=== PATIENT | male | born 1995 | race Caucasian/White ===

== ENCOUNTER 2025-01-20 10:28 | Day surgery (SDC) | payer MEDICAID, SELFPAY ==
[2025-01-20] VITALS (9 sets, daily range): BP systolic 116–143; BP diastolic 70–91; PULSE 58–73; RESP 14–16; TEMP 36.5–36.9; O2SAT 98–100; BMI 23.6
[2025-01-20] MEDS: Lactated Ringers 1,000 ML 15 ML IV (11:28)
--- NOTE | 2025-01-20 11:55 | HP.PCM_ITS ---
HPI - General General Date of Admission: 01/20/25 Date of Service: 01/20/25 Chief Complaint: Right inguinal hernia/umbilical hernia HPI Narrative ALBERTO QUINN, is a 29 M who presents for elective robotic right inguinal hernia pair with mesh along with an umbilical hernia repair. Patient was seen in the office earlier this year. I offered him surgical repair. We discussed the details of the planned procedure and he wishes to proceed. This will begin momentarily [facility] Medical History (Updated 01/14/25 @ 15:21 by Sandra Aguilar) Depression Anxiety Alcohol use Heartburn Smoker Right inguinal hernia Home Medications Medication Instructions Recorded Last Taken Type NK 06/10/24 Unknown History Allergy/AdvReac Type Severity Reaction Status Date / Time No Known Allergies Allergy Verified 01/20/25 11:24 Surgical History (Updated 01/14/25 @ 15:21 by Sandra Aguilar) No history of previous surgery Social History (Updated 01/07/25 @ 14:59 by Zenaida Conley) current occupational status: employed Smoking Status: Current every day smoker quit status: not considering quitting alcohol intake: never substance use type: does not use Vital Signs Vital Signs Vital Signs: 01/20/25 11:25 01/20/25 11:25 Temperature 97.7 F L Temperature Source Temporal Pulse Rate 58 L Respiratory Rate 16 Respiratory Pattern Normal Blood Pressure 143/91 H Blood Pressure Mean 108 Blood Pressure Source Monitor Blood Pressure Position Semi-Fowlers Blood Pressure Location Right Arm Pulse Ox 100 Oxygen Delivery Method Room Air Weight Weight: 174 lb 2.643 oz Body Mass Index (BMI) 23.6 Physical Exam Const alert, oriented x3 and no apparent distress Assessment & Plan Assessment/Plan (1) Umbilical hernia: QUALIFIERS: Obstruction and gangrene presence: without obstruction or gangrene Qualified Code(s): K42.9 - Umbilical hernia without obstruction or gangrene (2) Right inguinal hernia: PLAN: Plan Robotic right inguinal hernia repair with mesh along with umbilical hernia repair plan for today
--- NOTE | 2025-01-20 12:02 | PRE.ANES_ITS ---
ASA Classification* ASA Classification ASA Classification: 2 Assessment & Plan Anesthesia* Anesthesia Assessment Anesthesia Assessment: Discussed sedation and/or anesthesia options, risks, benefits, and alternatives with patient/parents/legal guardian/POA. Questions invited. The patient/parents/legal guardian/POA seems to understand and agrees to proceed with anesthesia plan. Reviewed the physical assessment, medical history, allergy history and patient home medications list prior to surgery/procedure/anesthetic and documented any changes. Performed airway and anesthesia risk assessments. Anesthesia Type Anesthesia Type: General History Source History Obtained from:: Patient and Chart Anesthesia Focused Assessment* Temperature: 97.7 F Pulse Rate: 58 Blood Pressure: 143/91 Respiratory Rate: 16 Pulse Ox: 100 Oxygen Delivery Method: Room Air Airway Assessment Mouth opens: >3 cm Mallampati Score: II Teeth Condition: Chipped/Broken (Patient has several chipped teeth.) and Missing (Patient is missing a left upper molar. 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 When Was Last Pacemaker Check QUESTION #4 FULL TEXT: You/Your Family Experience fever (hyperthermia) with Anesthesia Last Oral Intake Last Oral intake: Last Oral Intake NPO since 23:00 01/20/25 11:25 Meds taken in AM with sips of water? Meds patient instructed to take am of surgery PONV PONV - confectionery maker: PONV - confectionery maker Female No 01/14/25 15:17 HX of Motion Sickness No 01/14/25 15:17 HX of N/V After Surgery No 01/14/25 15:17 Non-Smoker No 01/14/25 15:17 Duration of Surgery greater Yes 01/14/25 15:17 than 60 minutes Number of Risk Factors 1 01/14/25 15:17 PONV Score Low Risk 01/14/25 15:17 Height & Weight Height & Weight: Anesthesia: Height & Weight Height 6 ft 01/20/25 11:25 Weight: 79 kg 01/20/25 11:25 Body Mass Index (BMI) 23.6 01/20/25 11:25 Respiratory Assessment Respiratory Assessment - confectionery maker: Respiratory Tract Infection Hx - confectionery maker Hx Respiratory Tract Infection No 01/14/25 15:17 STOP Sleep Apnea STOP Sleep Apnea - confectionery maker: STOP Sleep Apnea - confectionery maker Hx Hypertension No 01/14/25 15:17 Hx Sleep Apnea No 01/14/25 15:17 CPAP BIPAP Do you snore loudly (louder No 01/14/25 15:17 than talking or can be heard Do you often feel tired/ No 01/14/25 15:17 fatigued/ sleepy during daytime? Has anyone observed you stop No 01/14/25 15:17 breathing during sleep? STOP Results Negative 01/14/25 15:17 QUESTION #5 FULL TEXT : Do you snore loudly (louder than talking or can be heard through closed doors)? 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 Specify any problems Hx of Preganancy in last 3 N/A 01/14/25 15:17 Months Nurse Filling Out Transfusion DSCHRIBER 01/14/25 15:17 & Questions: Date: 01/14/25 01/14/25 15:17 Time: 15:18 01/14/25 15:17 Patient unable to answer at this time (ie. confused, unrespo /Reproduction History /Reproductive History - confectionery maker: /Reproductive Hx- confectionery maker Hx Now No 01/14/25 15:17 Gestational Age (in weeks): EDC: Hx Hx Para Hx Section SAB No 01/14/25 15:17 Does the father of the baby or his family experience fever w Father of the baby Malignant Hypertension history comment Active Medications Active Medications: Current Medications Generic Name Dose Route Start Last Admin Trade Name Freq PRN Reason Stop Dose Admin Lactated Ringer's 1,000 mls @ 15 mls/hr 01/20/25 11:15 01/20/25 11:28 IV 15 mls/hr .Q48H RONI Administration PFSH Medical History Depression Anxiety Alcohol use Heartburn Smoker Right inguinal hernia Home Medications Medication Instructions Recorded Last Taken Type NK 06/10/24 Unknown History Allergy/AdvReac Type Severity Reaction Status Date / Time No Known Allergies Allergy Verified 01/20/25 11:24 Surgical History No history of previous surgery no surgical history Social History current occupational status: employed Smoking Status: Current every day smoker tobacco type: cigarettes quit status: not considering quitting alcohol intake: never substance use type: does not use Review of Systems (Anesthesia) ROS Narrative System reviewed and no additional complaints, except as documented.
--- OUTSIDE RECORDS SUMMARY | 2025-01-20 12:10 | XMS RPT_ITS | CCD ---
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 MsgRcvd: 09/24/2024 22:52 EDT Lab Test Result Reference Status Received Comments 09/24/2024 22:52 CBC-COMPLETE CBC + DIFF Final EDT BLOOD COUNT 09/24/2024 22:52 WBC 8.2 x 10/UL 4.5 - 10.8 Final EDT 09/24/2024 22:52 RBC 5.02 x 10/UL 4.50 - 6.00 Final EDT 09/24/2024 22:52 HEMOGLOBIN 15.0 g/dl 13.0 - 17.5 Final EDT 09/24/2024 22:52 HEMATOCRIT 43.0 % 40.0 - 52.0 Final EDT 09/24/2024 22:52 MCV 86 fl 81 - 98 Final EDT 09/24/2024 22:52 MCH 30 pg 27 - 33 Final EDT 09/24/2024 22:52 MCHC 35 X10 3 32 - 36 Final EDT 09/24/2024 22:52 RDW/CV 13.7 % 12.0 - 15.6 Final EDT 09/24/2024 22:52 PLATELET 219 x10/UL 150 - 450 Final EDT 09/24/2024 22:52 AUTOMATED MPV 9.8 fl 6.4 - 10.5 Final EDT DIFFERENTIAL 3 of 9 Narrative Lab Test Result Reference Status Received Comments 45.8 % 09/24/2024 22:52 NEUT % 46.0 - 76.0 Final Below low normal EDT 09/24/2024 22:52 LYMPH % 42.5 % 20.0 - 45.0 Final EDT 09/24/2024 22:52 MONOS % 7.1 % 0.0 - 10.0 Final EDT 09/24/2024 22:52 EO % 4.1 % 0.0 - 7.0 Final EDT 09/24/2024 22:52 BASO % 0.5 % 0.0 - 2.0 Final EDT 3.47 x10/UL 09/24/2024 22:52 Lymph # 0.80 - 2.80 Final Above high normal EDT 09/24/2024 22:52 Neut # 3.74 x10/UL 1.50 - 7.10 Final EDT 09/24/2024 22:52 [place] # 0.58 x10/UL 0.20 - 1.00 Final EDT 09/24/2024 22:52 EO # 0.34 x10/UL 0.00 - 0.50 Final EDT 09/24/2024 22:52 Baso # 0.04 x10/UL 0.00 - 0.10 Final EDT 09/24/2024 22:52 MANUAL DIFF N/A New Order EDT 09/24/2024 22:52 MORPHOLOGY N/A New Order EDT CMP with eGFR Final SONYA: 09/24/2024 22:25:00 EDT MsgRcvd: 09/24/2024 23:11 EDT 4 of 9 Narrative Lab Test Result Reference Status Received Comments COMPREHENSIVE 09/24/2024 CMP with eGFR Final METABOLIC 23:11 EDT PANEL 09/24/2024 SODIUM 141 mmol/l 136 - 145 Final 23:11 EDT 09/24/2024 POTASSIUM 4.0 mmol/L 3.5 - 5.1 Final 23:11 EDT 09/24/2024 CHLORIDE 106 mmol/L 98 - 107 Final 23:11 EDT 09/24/2024 CO2 28.3 mmol/L 21.0 - 32.0 Final 23:11 EDT 108 mg/dl 09/24/2024 GLUCOSE Above high 74 - 106 Final 23:11 EDT normal 09/24/2024 BUN 16 mg/dl 7 - 18 Final 23:11 EDT 09/24/2024 CREATININE 0.95 mg/dl 0.70 - 1.30 Final 23:11 EDT 13 U/L 09/24/2024 AST/SGOT 15 - 37 Final Below low normal 23:11 EDT 09/24/2024 AL (more content not included)... Normal [facility] ED SUPER BILLon 09-25-2024 ED SUPER BILL [address] [address] [id number] 09/24/2024 Patient: ALBERTO QUINN Sex: Male : 1995 Age: 29y Item Facility Professional Category Description Code Code Quantity Fee Total Drugs Normal Saline 379472 1 $0.00 $0.00 1000cc (471723) Nurse/E/M EMERGENCY 421296 1 $0.00 $0.00 DEPARTMENT VISIT HIGH/URGENT SEVERITY (30627-80) Nurse/IV/IM/Infusio ns Hydration 855006 2 $0.00 $0.00 additional hour (68310) Nurse/IV/IM/Infusio ns IVP additional 050005 1 $0.00 $0.00 push (22591) Nurse/IV/IM/Infusio ns IVP initial 816725 1 $0.00 $0.00 (63658) Grand Total $0.00 Providers Tangela Leavitt D.O. 1 of 2 [facility] Chief Complaint ABDOMINAL PAIN. Principal Diagnosis Periumbilical, right lower quadrant and suprapubic abdominal pain of undetermined cause. Reducible and recurrent right inguinal hernia. No obstruction or gangrene. ICD-10 Codes R10.33: Periumbilical pain R10.31: Right lower quadrant pain R10.30: Lower abdominal pain, unspecified K40.91: Unilateral inguinal hernia, without obstruction or gangrene, recurrent 2 of 2 Normal [facility] ED VISIT SUMMARYon ED VISIT SUMMARY Visit Overview Visit Overview [address] [address] [id number] 09/24/2024 Patient: ALBERTO QUINN Sex: Male : 1995 Age: 29y 09/25/2024 01:18 AM EDT ED Arrival:22:12 09/24/2024 EDT Status: Recent Travel:no Language:eng Adv Directive:No Isolation Status: Ethnicity:N Fall Risk:no risk Infectious Disease Exposure:no Measurements:6' / 182.9 Self-Harm Status:risk Sepsis Screen:negative cm 175.0 lb / 79.4 kg Chief Complaint:(Luke Jocelyne) and (Painful hernias to inguinal and umbilical) ALLERGIES No Known Drug Allergies HOME MEDICATIONS None PAST MEDICAL HISTORY / PROBLEMS Immunizations: up-to-date See nurses notes 1 of 3 Visit Overview PAST SURGICAL HISTORY No Surgeries SOCIAL HISTORY Smoking status: Yes Alcohol use: No Drug use: Yes ED COURSE MEDICATIONS GIVEN IN EMERGENCY DEPARTMENT 22:32 09/24/24 IV NS 0.9 % 1000 mL 500 mL/hr 22:48 09/24/24 Zofran IVP 4 mg 22:50 09/24/24 HYDROmorphone (Dilaudid) IVP 0.5 mg IV SITE INFORMATION INTAKE OUTPUT REASSESMENT (most recent) 23:31 09/24/24. The patient reports no complaints and the patient is calm. ( Pt reports his hernia has reduced but will "fall out" again when he stands up.). VITAL SIGNS First Vitals Last Vitals Temp 22:18 09/24/24 98.6 F Temp 00:19 09/25/24 BP 22:18 09/24/24 158/99 BP 00:19 09/25/24 HR 22:18 09/24/24 115 HR 00:19 09/25/24 60 RR 22:18 09/24/24 16 RR 00:19 09/25/24 O2 Sat 22:18 09/24/24 98% RA O2 Sat 00:19 09/25/24 97% Pain 22:18 09/24/24 7 Pain 00:19 09/25/24 ETCO2 22:18 09/24/24 ETCO2 00:19 09/25/24 GCS 22:18 09/24/24 GCS 00:19 09/25/24 RTS 22:18 09/24/24 RTS 00:19 09/25/24 2 of 3 Visit Overview PROCEDURES NURSING INTERVENTIONS LABS / STUDIES LABS / STUDIES ORDERED CBC w Diff CMP CT ABD/PEL w Cont Lipase Urinalysis CLINICAL IMPRESSION PERIUMBILICAL, RIGHT LOWER QUADRANT AND SUPRAPUBIC ABDOMINAL PAIN OF UNDETERMINED CAUSE REDUCIBLE AND RECURRENT RIGHT INGUINAL HERNIA. NO OBSTRUCTION OR GANGRENE 3 of 3 Normal [facility] ED VITALS FLOW SHEETon 09-25 ED VITALS FLOW SHEET Vitals Vital Sign Flow Sheet [facility] [address] [place] [address] [id number] 09/24/2024 [id number] Sex: Male : 1995 Age: 29y Measurements Wt: 79.4 kg, Ht/Steven: 72.0 in, BMI: 23.73 Measured Time BP MAP HR RR O2Sat ETCO2 Temp Pain GCS RTS 00:19 09/25/2024 60 97% 00:19 09/25/2024 122/78 86 59 00:14 09/25/2024 65 98% 00:09 09/25/2024 63 98% 00:04 09/25/2024 65 97% 00:04 09/25/2024 122/76 88 60 23:59 09/24/2024 64 97% 23:54 09/24/2024 65 95% 23:49 09/24/2024 95 95% 23:49 09/24/2024 121/72 83 62 23:44 09/24/2024 68 96% 23:39 09/24/2024 69 96% 23:34 09/24/2024 73 97% 23:34 09/24/2024 119/74 88 70 23:29 09/24/2024 82 97% 1 of 2 Vitals Measured Time BP MAP HR RR O2Sat ETCO2 Temp Pain GCS RTS 23:24 09/24/2024 82 98% 23:19 09/24/2024 84 97% 23:19 09/24/2024 121/75 89 82 23:14 09/24/2024 79 98% 23:06 09/24/2024 78 97% 23:04 09/24/2024 120/64 82 75 23:01 09/24/2024 84 99% 22:56 09/24/2024 92 98% 22:51 09/24/2024 100 97% 22:49 09/24/2024 129/85 105 95 22:46 09/24/2024 101 98% 22:41 09/24/2024 90 98% 22:36 09/24/2024 110 98% 22:34 09/24/2024 136/91 97 101 22:31 09/24/2024 105 98% 22:26 09/24/2024 90 99% 22:21 09/24/2024 102 98% 22:19 09/24/2024 158/99 106 113 22:18 09/24/2024 158/99 119 115 16 98% RA 98.6 F 7 2 of 2 Normal [facility] CBC + DIFFon 09-24-2024 Baso # 0.04 x10EE3/UL Normal 0.00 - 0.10 [facility] Comment on above: Performed By: #### 2 [id number] ####[facility],[address] [place] [address] Basophils/100 WBC (Bld) 0.5 % Normal 0.0 - 2.0 [facility] Comment on above: Performed By: #### 2 06037 ####[facility],[address] [place] [address] CBC + DIFF Normal [facility] Comment on above: Result Comment: CBC- COMPLETE BLOOD COUNT Performed By: #### 2 98553 ####[facility],[address] [place] [address]796 EO # 0.34 x10EE3/UL Normal 0.00 - 0.50 [facility] Comment on above: Performed By: #### 2 93049 ####[facility],[address] [place] [address] 39100 Eosinophils/100 WBC (Bld) 4.1 % Normal 0.0 - 7.0 [facility] Comment on above: Performed By: #### 2 98523 ####[facility],[address] [place] [address] 95135 Erythrocyte distribution width (RBC) [Ratio] 13.7 % Normal 12.0 - 15.6 [facility] Comment on above: Performed By: #### 2 32090 ####[facility],[address] [place] [address] 95011 Hematocrit (Bld) [Volume fraction] 43.0 % Normal 40.0 - 52.0 [facility] Comment on above: Performed By: #### 2 83358 ####[facility],[address] [place] [address] 89289 Hemoglobin (Bld) [Mass/Vol] 15.0 g/dL Normal 13.0 - 17.5 [facility] Comment on above: Performed By: #### 2 19009 ####[facility],[address] [place] [address] Lymph # 3.47 x10EE3/UL High 0.80 - 2.80 [facility] Comment on above: Performed By: #### 2 29752 ####[facility],[address] [place] [address] Lymphocytes/100 WBC (Bld) 42.5 % Normal 20.0 - 45.0 [facility] Comment on above: Performed By: #### 2 11741 ####[facility],[address] [place], [place] [address] MANUAL DIFF N/A Normal [facility] Comment on above: Performed By: #### 2 42121 ####[facility],[address] [place], [place] [address] MCH (RBC) [Entitic mass] 30 pg Normal 27 - 33 [facility] Comment on above: Performed By: #### 2 39240 ####[facility],[address] [place], [place] [address] MCHC 35 X10 3 Normal 32 - 36 [facility] Comment on above: Performed By: #### 2 25167 ####[facility],[address] [place] [address] MCV (RBC) [Entitic vol] 86 fL Normal 81 - 98 [facility] Comment on above: Performed By: #### 2 13321 ####[facility],[address] [place] [address]63 [place] # 0.58 x10EE3/UL Normal 0.20 - 1.00 [facility] Comment on above: Performed By: #### 2 89697 ####[facility],[address] [place] [address]1966 MONOS % 7.1 % Normal 0.0 - 10.0 [facility] Comment on above: Performed By: #### 2 60584 ####[facility],[address] [place] [address] 45559 Morphology [place] (Bld) [Interp] N/A Normal [facility] Comment on above: Performed By: #### 2 42967 ####[facility],[address] [place] [address] Neut # 3.74 x10EE3/UL Normal 1.50 - 7.10 [facility] Comment on above: Performed By: #### 2 33523 ####[facility],[address] [place] [address] 28166 Neutrophils/100 WBC (Bld) 45.8 % Low 46.0 - 76.0 [facility] Comment on above: Performed By: #### 2 58811 ####[facility],[address] [place] [address] 14775 PLATELET 219 x10EE3/UL Normal 150 - 450 [facility] Comment on above: Performed By: #### 2 82340 ####[facility],[address] [place] [address] 69510 Platelet mean volume (Bld) [Entitic vol] 9.8 fL Normal 6.4 - 10.5 [facility] Comment on above: Result Comment: AUTO MATED DIFFERENTIAL Performed By: #### 2 08608 ####[facility],[address] [place] [address] 60803 RBC 5.02 x 10EE6/UL Normal 4.50 - 6.00 [facility] Comment on above: Performed By: #### 2 40643 ####[facility],[address] [place] [address]6573 WBC 8.2 x 10EE3/UL Normal 4.5 - 10.8 [facility] Comment on above: Performed By: #### 2 98199 ####[facility],[address] [place] [address] 30665 CMP with eGFRon 09-24-2024 AGE 29 years Normal [facility] Comment on above: Performed By: #### 2 37858 ####[facility],[address] [place] [address] 69130 Albumin [Mass/Vol] 3.5 g/dL Normal 3.4 - 5.0 [facility] Comment on above: Performed By: #### 2 82787 ####[facility],[address] [place] [address] Albumin/Globulin [Mass ratio] 0.9 {ratio} Normal 0.9 - 1.6 [facility] Comment on above: Performed By: #### 2 62271 ####[facility],[address] [place], [place] [address] ALK PHOS 74 U/L Normal 46 - 116 [facility] Comment on above: Performed By: #### 2 50909 ####[facility],[address] [place] [address] 31642 ALT [Catalytic activity/Vol] 24 U/L Normal 16 - 63 [facility] Comment on above: Performed By: #### 2 38708 ####[facility],[address] [place] [address] 87142 Anion gap [Moles/Vol] 11 mmol/L Normal 10 - 20 [facility] Comment on above: Performed By: #### 2 56316 ####[address] [address] AST [Catalytic activity/Vol] 13 U/L Low 15 - 37 [facility] Comment on above: Performed By: #### 2 76564 ####[facility],[address] [place] [address] 30053 B/C RATIO 17 ratio Normal 0 - 30 [facility] Comment on above: Performed By: #### 2 68632 ####[facility],[address] [place] [address] 77489 Bilirubin [Mass/Vol] 0.3 mg/dL Normal 0.2 - 1.0 [facility] Comment on above: Performed By: #### 2 89596 ####[facility],[address] [place] [address] 19248 Calcium [Mass/Vol] 9.0 mg/dL Normal 8.5 - 10.1 [facility] Comment on above: Performed By: #### 2 44658 ####[facility],[address] [place] [address] 06567 Chloride [Moles/Vol] 106 mmol/L Normal 98 - 107 [facility] Comment on above: Performed By: #### 2 15115 ####[facility],[address] [place], [place] [address] CMP with eGFR Normal [facility] Comment on above: Result Comment: COMP REHENSIVE METABOLIC PANEL Performed By: #### 2 75449 ####[facility],[address] [place] [address] 76013 CO2 [Moles/Vol] 28.3 mmol/L Normal 21.0 - 32.0 [facility] Comment on above: Performed By: #### 2 35662 ####[facility],[address] [place] [address] 06956 Creatinine [Mass/Vol] 0.95 mg/dL Normal 0.70 - 1.30 [facility] Comment on above: Performed By: #### 2 46229 ####[facility],[address] [place] [address]4722 GFR/1.73 sq M.predicted among non-blacks MDRD (S/P/Bld) [Vol rate/Area] mL/min/{1.73_m2} Normal 60 - 999 [facility] Comment on above: Performed By: #### 2 72463 ####[facility],[address] [place] [address] 26055 Result Comment: ACCO RDING TO THE NATIONAL KIDNEY DISEASE EDUCATION PROGRAM(NKDE), A NORMAL eGFR IS A VALUE GREATER THAN OR EQUAL TO 60 ML/MIN/1.73 SQ METERS. CHRONIC KIDNEY DISEASE: <60mL/MIN/1.73 SQ METERS KIDNEY FAILURE: <15mL/MIN/1.73 SQ METERS THIS TEST SHOULD ONLY BE USED FOR PATIENTS 18 YEARS OF AGE AND OLDER. Globulin (S) [Mass/Vol] 4.0 g/dL High 1.5 - 3.8 [facility] Comment on above: Performed By: #### 2 16686 ####[facility],[address] [place] [address] 37984 Glucose [Mass/Vol] 108 mg/dL High 74 - 106 [facility] Comment on above: Performed By: #### 2 15002 ####[facility],[address] [place] [address] 57275 Potassium [Moles/Vol] 4.0 mmol/L Normal 3.5 - 5.1 [facility] Comment on above: Performed By: #### 2 31367 ####[facility],[address] [place] [address] 15375 Protein [Mass/Vol] 7.5 g/dL Normal 6.4 - 8.2 [facility] Comment on above: Performed By: #### 2 92919 ####[facility],[address] [place] [address] 45207 Sodium [Moles/Vol] 141 mmol/L Normal 136 - 145 [facility] Comment on above: Performed By: #### 2 96675 ####[facility],[address] [place] [address] 60648 Urea nitrogen [Mass/Vol] 16 mg/dL Normal 7 - 18 [facility] Comment on above: Performed By: #### 2 15096 ####[facility],[address] [place] [address] 09515 LIPASEon 09-24-2024 Lipase [Catalytic activity/Vol] 25.0 U/L Normal 15.0 - 78.0 [facility] Comment on above: Result Comment: *PLE ASE NOTE THAT RANGES FOR LIPASE HAVE CHANGED OF 03/03/23 DUE TO AN ASSAY UPDATE BY THE PRECISION HONING MACHINE OPERATOR.THE NEW ASSAY RANGE IS 6-250 U/L, WITH A REFERENCE RANGE OF 16-77 U/L. Performed By: #### 2 90639 ####[facility],[address] [place] [address] 93537 Surgery Visit Reporton 06-10 Surgery Visit Report [facility] [address] [place] [address] [address] [place] [address] OFFICE VISIT Date of Service: 06/10/24 MR#: [id number] Acct: [id number] Name: ALBERTO QUINN Rep #: [id number] : 1995 Provider: Dr. Holland hughes MD Age/Sex: 29/M Location: [facility] Status: Signed Intake Vital Signs 06/10/24 09:20 Height 6 ft Weight: 179 lb BMI 24.3 BP 137/80 H Blood Pressure Location Rt brachial Position Sitting Respiration 18 Pulse 80 Pulse Source Monitor Temp 97.9 F Temp Source Temporal Pulse Oximetry (%) 100 Oxygen Delivery Method room air Intake Visit Reasons: INGUINAL HERNIA- SP Chief Complaint: inguinal hernia Allergies No Known Allergies Allergy (Unverified 06/10/24 09:21) Medications ???Medication ???Instructions ???Recorded ???Confirmed ???Type NK 06/10/24 06/10/24 History PFSH Medical History Right inguinal hernia Social History current occupational status: employed Smoking Status: Current every day smoker alcohol intake: never substance use type: does not use HPI HPI HPI: The patient is a 29-year-old male who is being seen today for a palpable right inguinal hernia. 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 He noticed while at work, a pop and a bulge was noted in the right groin. He states that this was first noticed back in October 2023. He states that this pain and discomfort has persisted. He presents today for evaluation of this hernia on the right. He denies any issues or problems on the left. He does notice some occasional discomfort at the umbilicus as well. ROS General General: No weight change, appetite, fatigue, colon cancer, breast cancer or weakness HEENT HEENT: No difficulty swallowing, eye injury, eye surgery, swollen glands or hoarseness Endo Endocrine: No thyroid disease, diabetes mellitus, thyroid cancer, Hair loss, heat intolerance or cold intolerance Skin Skin: No rash or changing moles Musc Musculoskeletal: No back problems, arthritis, rheumatoid arthritis, gout or joint pain Cardio Cardiovascular: No murmur, pacemaker, heart disease, atrial fibrillation, high blood pressure, heart attack, heart stent, palpitations, shortness of breath with exertion or chest pain Psych Psychiatric: Yes depression and anxiety; No hearing voices Resp Respiratory: No shortness of breath, No sleep apnea, No cough, No COPD, No asthma, No emphysema and No wheezing Gastro Gastrointestinal: Yes abdominal pain, No nausea or vomiting, No diarrhea, Yes constipation, No blood in stool, Yes acid reflux, No hemorrhoids, No ulcers, No gallbladder problem and No black,tarry stools Dereje Hematologic: No blood thinners, No blood disorders, No bleeding, No anemia and No blood clots Neuro Neurologic: No numbness, No tingling and No weakness Exam Const General: cooperative, comfortable and no acute distress [facility] Head: normal to inspection, normocephalic and atraumatic Eyes General: appearance normal, both eyes and all related structures Neck Neck: normal visual inspection Resp Effort Inspection: normal respiratory effort GI Other: Abdomen soft, nontender nondistended. He does have a small fat-containing umbilical hernia Other: Fairly easily reducible moderate-sized right inguinal hernia. No evidence of left inguinal hernia Assessment and Plan Assessment and Plan (1) Right inguinal hernia: Status: Acute Plan: The patient is a 29-year-old male who is being seen today for right inguinal hernia. He does indeed have a right inguinal hernia. He also has a small umbilical hernia. I have offered him a robotic right inguinal hernia repair with mesh as well as an open repair of his small umbilical hernia as well. We discussed the details of the planned procedure as well as risks benefits and alternatives. He wishes to proceed. This will be scheduled in a timely manner. Coding Level of Care Code Off vis,new,level 4 Diagnoses Right inguinal hernia K40.90 06/10/24 0955 Date Holland Garcia Signature: Date (if applicable) CC: FAYE Palacios [facility] ED MED ADMINISTRATION DETAIL on 05-10-2024 ED MED ADMINISTRATION DETAIL Catalogue Illustrator Medication Administration Record [address] [address] [id number] 05/10/2024 Patient: ALBERTO QUINN Sex: Male : 1995 Age: 28y MEASUREMENTS: Wt: 79.4 kg, Ht/Steven: 72.0 in, BMI: 23.73 ALLERGIES: No known drug allergies Medication Ordered Medication Administration Date/Time Neomycin-Bacitraci 05:15 05/10 Neomycin-Bacitracin Zn-Polymyx Ophth Ointment 1 Given n Zn-Polymyx applic given. Given in the left eye. Allergies verified and confirmed 5 05:15 05/10/2024 Ophth Ointment 1 rights. Information reviewed with patient including reason for taking Mateusz Steward R.N. applic (NOW x1) this medication. Verbalizes understanding. - 05:17 Scottie Anand R.N. 1 of 1 [facility] ED NURSES CLINICAL NOTEon ED NURSES CLINICAL NOTE Nurse Narrative Nurse Clinical Narrative [address] [address] [id number] 05/10/2024 Patient: ALBERTO QUINN Sex: Male : 1995 Age: 28y Primary Insurance: [employer] [facility] Policy Number: [id number] Subscriber: Other Disposition: Discharge to Home Disposition Decision Time: 05:16 05/10/2024 Departure Time: 05:05/10/2024 TRIAGE Arrived by private vehicle. Historian: (patient). Accompanied by friend. Triage time: 04:05/10/2024. Acuity: LEVEL 3. Chief Complaint: REDNESS, PAIN, FOREIGN BODY and VISION PROBLEM TO LEFT EYE. (two days ago cutting rebar at work felt piece of metal hiy his left eye, now w/ c/o increased pain and burning sensation.). Alert. No acute distress. Onset. (two days ago). The patient has had eye discomfort, photophobia and blurred vision. Treatment ADVISER SALES: None. SEPSIS SCREEN: NEGATIVE. SIRS criteria negative. No possible sources of infection. -- 04:16 05/10/24 YOVANNY Steward R.N. 04:05/10/24. BP: 141/87 MAP: 105. HR: 85. RR: 16. O2 saturation: 97% Temperature: 98.7 F. Pain level now 4/10. -- 04:15 05/10/24 YOVANNY Steward R.N. 04:05/10/24. 1 of 4 Nurse Narrative VISUAL ACUITY: Visual acuity performed without corrective lenses: left eye 20/50; right eye 20/25. -- 04:18 05/10/24 YOVANNY Steward R.N. Measurements: 04:05/10/24 Wt: 79.4 kg, Ht/Steven: 72.0 in, BMI: 23.73 -- 04:16 05/10/24 YOVANNY Steward R.N. Medications: no known home medications -- 04:05/10/24 YOVANNY Steward R.N. 04:05/10/24. Preferred Pharmacy: ([facility]). -- 04:16 05/10/24 YOVANNY Steward R.N. Allergies: no known drug allergies -- 04:05/10/24 YOVANNY Steward R.N. Problems: no known problem -- 04:05/10/24 YOVANNY Steward R.N. ADDITIONAL SURGERIES: unable to obtain surgical history -- 04:12 05/10/24 YOVANNY Steward R.N. History 04:05/10/24. PAST MEDICAL HX: Immunizations: Tetanus status: unknown. Other immunizations: up-to-date. SOCIAL HX: Heavy tobacco smoker (cigarette)- less than 1 pack per day. No alcohol use or drug use. The patient has not traveled outside the [place] Infectious disease exposure: No infectious disease exposure. ABUSE ASSESSMENT: The patient answered "yes" to the question(s) "Do you feel safe in your home?" and "no" to the question(s) "Are you afraid to go home?". SELF HARM ASSESSMENT: Self harm assessment was performed. The patient answered "no" to the question(s) "Have you recently felt down, depressed, or hopeless?" and "Do you have thoughts of harming or 2 of 4 Nurse Narrative killing yourself?". FALL RISK ASSESSMENT: Fall risk assessment completed. No risk factors identified. -- 04:16 05/10/24 YOVANNY Steward R.N. Interventions 04:05/10/24. Identification band on patient. Advanced care plan. Patient does not have advanced directive. -- 04:16 05/10/24 YOVANNY Steward R.N. PHYSICAL ASSESSMENT 04:05/10/24. GENERAL / NEURO / PSYCH: Alert. Appears in no acute distress. ( here for foreign body to left eye x two days). HEENT: No signs of head trauma. -- 04:38 05/10/24 YOVANNY Steward R.N. NURSING PROGRESS NOTES 04:05/10/24. Two patient identifiers checked. Call light placed in reach. Side rails up x 1. Bed placed in lowest position. Brakes of bed on. Aircraft Sales Representative at bedside. -- 04:38 05/10/24 YOVANNY Steward R.N. 04:48 05/10/24. Eye Exam: Eye exam performed by ED physician. Assisted by one nurse. Left eye examined using slit lamp, fluorescein and lamp. A single foreign body was noted and removed from the cornea. Rust ring present. Corneal abrasion noted. The procedure was successful. Post-procedure: patient tolerated the procedure well and there were no complications. Antibiotic ointment applied to the left eye. Total time of assist / procedure: (5). -- 05:33 05/10/24 YOVANNY Steward R.N. 05:15 05/10/24. Neomycin-Bacitracin Zn-Polymyx Ophth Ointment 1 applic given. Given in the left eye. Allergies verified and confirmed 5 rights. Information reviewed with patient including reason for taking this medication. Verbalizes understanding. -- 05:17 05/10/24 YOVANNY Steward R.N. DISPOSITION / DISCHARGE 04:59 05/10/24. BP: 129/85 MAP: 100. HR: 83. RR: 16. O2 saturation: 97% Pain level now 0/10. -- 05:34 05/10/24 YOVANNY Steward R.N. 05:24 05/10/24. Condition at departure: improved. Discharge instructions provided and reviewed. Reviewed medication(s) dosing and course information. Medication(s) given for home use. Patient verbalized understanding. Written instructions provided in Icelandic. The patient was discharged home and accompanied by spouse. The patient left ambulatory and via private vehicle. Spouse driving. -- 05:35 05/10/24 YOVANNY العلي (more content not included)... [facility] ED ORDER SHEET (CPOE ONLY)on 05-10-2024 ED ORDER SHEET (CPOE ONLY) Order Sheet Order Sheet [address] [address] [id number] 05/10/2024 Patient: ALBERTO QUINN Sex: Male : 1995 Age: 28y MEASUREMENTS: Wt: 79.4 kg, Ht/Steven: 72.0 in, BMI: 23.73 ALLERGIES: No known drug allergies MEDICATION/IV/DRIP/ FLUID ORDERS Order Description Priority Entered Acknowledged Completed Neomycin-Bacitracin 05:09 05/10/2024 05:09 05:17 Zn-Polymyx Ophth Ointment1 Arianna Marcos M.D. 05/10/2024 05/10/2024 applic (NOW x1) Yenni Rutt, R.N. Mateusz Cleveland, R.N. LAB ORDERS Order Description Priority Entered Acknowledged Collected Completed DIAGNOSTIC STUDY ORDERS Order Description Priority Entered Acknowledged Completed STAFF ORDERS Order Description Priority Entered Acknowledged Collected Completed [Electronically signed by Arianna Marcos M.D. (05/10/2024 05:46 EST)] 1 of 1 [facility] ED PHYSICIAN CLINICAL REPORT on 05-10-2024 ED PHYSICIAN CLINICAL REPORT Narrative Physician Clinical Narrative [facility] [address] [place] [address] [phone] 05/10/2024 Patient: ALBERTO QUINN Sex: Male : 1995 Age: 28y Primary Insurance: [employer] [place] [employer]PAT[employer] Policy Number: [id number] Subscriber: Other Disposition: Discharge to Home Disposition Decision Time: 05:16 05/10/2024 Departure Time: 05:24 05/10/2024 Measurements Wt: 79.4 kg, Ht/Steven: 72.0 in, BMI: 23.73 Initial Vital Sign Measured Time BP MAP HR RR O2Sat ETCO2 Temp Pain GCS RTS 04:15 05/10/2024 141/87 105 85 16 97% 98.7 F 4 Time Seen: 04:16 05/10/2024. HISTORY OF PRESENT ILLNESS Chief Complaint: EYE PAIN. This involves the left eye. Additional history - ( 28-year-old male presents to the ED with complaint of foreign body to left eye. 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 he felt something small go into his eyes at that time. Started having worsening pain, protein within comes in the ED. denies any headaches, complaint of mild blurry vision to the left eye. Denies chest pain, shortness of breath or other concerns at this time.). REVIEW OF SYSTEMS negative review of systems unless otherwise mentioned in the HPI. 1 of 4 Narrative PAST HISTORY no known problem Surgeries: unable to obtain surgical history Medications: no known home medications Allergies: no known drug allergies ADDITIONAL NOTES The nursing notes have been reviewed. PHYSICAL EXAM Vital Signs: Have been reviewed. Appearance: Alert. Oriented X3. HEENT: Head appears normal to external inspection. Eyes: Visual acuity noted- see nurse's notes. Eyelids appear normal to inspection. Pupils equal, round and reactive to light. Accommodation normal. Periorbital areas appear normal to inspection. Lt Eye: Injected conjunctiva. Conjunctival foreign body present. No conjunctival edema, subconjunctival hemorrhage or injury to the conjunctiva or sclera. No exudate present. Neck: Neck supple. CVS: Normal heart rate. Respiratory: No respiratory distress. Abdomen: Nontender. Skin: No rash. Extremities: Extremities negative. Neuro: Oriented X 3. PROGRESS AND PROCEDURES 2 of 4 Narrative MEDICAL DECISION MAKING: (Exam patient is awake, alert and oriented x4. Not in any acute respiratory distress. He does have a obvious foreign body to his left eye, to the medial aspect of his cornea sclera. With a cotton tip, I was able to take other foreign body, leaving a small ring rest. Eye thoroughly examined, no other foreign body seen. Wood's lamp exam was done. Corneal abrasion visualized around the previous site of the foreign body. Negative for Gerardo sign, no concern for globe rupture at this time. Patient is advised to follow up with the Ophthalmology in the next day. He verbalized understanding. Bacitracin/polymyci n ointment apply to affected eye in the ED. patient was then given ointment to go home with. Return precautions given as needed, he verbalized understanding. Disposition: Discharge patient Impression: 1. Foreign body to left eye, 2. Corneal abrasion). Disposition: Condition: good and stable. Discharged in good condition. Discharge decision based on the following: patient's condition is stable; patient's exam is improved. CLINICAL IMPRESSION Acute eye pain left eye. Corneal foreign body left eye. DISCHARGE INSTRUCTIONS (As discussed, please follow-up with the ophthalmology said they, all tomorrow. Tomorrow is Monday, so you should try to follow up today. Please use antibiotic to the affected eye 4 times a day). Follow-up with: Gumaro Nicolas MD, [facility], Opthalmalogy, Phone: [phone], [address] [place] [address]. Follow up today. (Electronically signed by Arianna Marcos M.D. 05/10/24 05:46:10 EST) Disposition History: Disposition Decision Time: 05:15 05/10/2024. Disposition changed to Discharge to Home. -- 05:36 05/10/2024 Arianna Marcos M.D. Disposition Decision Time: 05:16 05/10/2024. Disposition changed to Discharge to Home. Departure Time: 05:24 05/10/2024. -- 05:37 05/10/2024 Mateusz Steward R.N. 3 of 4 Narrative Generated by [facility] 4 of 4 [facility] ED SUPER BILLon 05-10-2024 ED SUPER BILL Superbill [address] [place] [address] [phone] 05/10/2024 Patient: ALBERTO QUINN Sex: Male : 1995 Age: 28y Item Professional Category Description Facility Code Code Quantity Fee Total Nurse/E/M EMERGENCY 126551 1 $0.00 $0.00 DEPARTMENT VISIT MODERATE SEVERITY (09396) Grand Total $0.00 Providers Arianna Marcos M.D. Chief Complaint EYE PAIN. Principal Diagnosis Acute eye pain left eye. Corneal foreign body left eye. 1 of 2 [facility] ICD-10 Codes H57.12: Ocular pain, left eye T15.02xA: Foreign body in cornea, left eye, initial encounter 2 of 2 [facility] ED VISIT SUMMARYon ED VISIT SUMMARY Visit Overview Visit Overview [address] [place] [address] [phone] 05/10/2024 Patient: ALBERTO QUINN Sex: Male : 1995 Age: 28y 05/10/2024 05:46 AM EST ED Arrival:04:03 05/10/2024 EST Status: Recent Travel:no Language:eng Adv Directive:No Isolation Status: Ethnicity:N Fall Risk:no risk Infectious Disease Exposure:no Measurements:6' / 182.9 Self-Harm Status:risk Sepsis Screen:negative cm 175.0 lb / 79.4 kg Chief Complaint:{REDNESS} TO LEFT EYE, {PAIN} TO LEFT EYE, {FOREIGN BODY} TO LEFT EYE, and {VISION PROBLEM} TO LEFT EYE; (two days ago cutting rebar at work felt piece of metal hiy his left eye, now w/ c/o increased pain and burning sensation.); (two days ago) ALLERGIES No Known Drug Allergies HOME MEDICATIONS 1 of 3 Visit Overview None PAST MEDICAL HISTORY / PROBLEMS Immunizations: Tetanus status: unknown None Other immunizations: up-to-date PAST SURGICAL HISTORY Unknown SOCIAL HISTORY Smoking status: Yes Alcohol use: No Drug use: No ED COURSE MEDICATIONS GIVEN IN EMERGENCY DEPARTMENT 05:15 05/10/24 Neomycin-Bacitracin Zn-Polymyx Ophth Ointment 1 applic IV SITE INFORMATION INTAKE OUTPUT REASSESMENT (most recent) 04:23 05/10/24. GENERAL / NEURO / PSYCH: Alert. Appears in no acute distress. ( here for foreign body to left eye x two days). HEENT: No signs of head trauma. VITAL SIGNS First Vitals Last Vitals Temp 04:15 05/10/24 98.7 F Temp 04:59 05/10/24 BP 04:15 05/10/24 141/87 BP 04:59 05/10/24 129/85 HR 04:15 05/10/24 85 HR 04:59 05/10/24 83 RR 04:15 05/10/24 16 RR 04:59 05/10/24 16 2 of 3 Visit Overview First Vitals Last Vitals O2 Sat 04:15 05/10/24 97% O2 Sat 04:59 05/10/24 97% Pain 04:15 05/10/24 4 Pain 04:59 05/10/24 0 ETCO2 04:15 05/10/24 ETCO2 04:59 05/10/24 GCS 04:15 05/10/24 GCS 04:59 05/10/24 RTS 04:15 05/10/24 RTS 04:59 05/10/24 PROCEDURES NURSING INTERVENTIONS LABS / STUDIES CLINICAL IMPRESSION ACUTE EYE PAIN LEFT EYE CORNEAL FOREIGN BODY LEFT EYE 3 of 3 [facility] ED VITALS FLOW SHEETon 05-10 ED VITALS FLOW SHEET Vitals Vital Sign Flow Sheet [address] [place] [address] [phone] 05/10/2024 Patient: ALBERTO QUINN Sex: Male : 1995 Age: 28y Measurements Wt: 79.4 kg, Ht/Steven: 72.0 in, BMI: 23.73 Measured Time BP MAP HR RR O2Sat ETCO2 Temp Pain GCS RTS 04:59 05/10/2024 129/85 100 83 16 97% 0 04:15 05/10/2024 141/87 105 85 16 97% 98.7 F 4 1 of 1 [facility] .Auto Diffon 08-25-2023 Basophil, Absolute 0.1 10 3/mcL Normal 0.0-0.3 [facility] ([place]) Comment on above: Performed By: #### G FR, ADIFF, BMP, CBC, SHILA, ANEU #### [address] [address] Basophils/100 WBC (Bld) 0.5 % Normal 0.0-2.5 [facility] ([place]) Comment on above: Performed By: #### G FR, ADIFF, BMP, CBC, SHILA, ANEU #### [address] [address] Eosinophil, Absolute 0.1 10 3/mcL Normal 0.0-0.7 [facility] ([place]) Comment on above: Performed By: #### G FR, ADIFF, BMP, CBC, SHILA, ANEU #### [address] [address] Eosinophils/100 WBC (Bld) 0.6 % Normal 0.0-6.0 [facility] ([place]) Comment on above: Performed By: #### G FR, ADIFF, BMP, CBC, W, ANEU #### [address] [address] Lymphocyte, Absolute 2.1 10 3/mcL Normal 0.9-4.3 [facility] ([place]) Comment on above: Performed By: #### G FR, ADIFF, BMP, CBC, SHILA, ANEU #### [address] [address] Lymphocytes/100 WBC (Bld) 17.4 % Low 20.0-40.0 [facility] ([place]) Comment on above: Performed By: #### G FR, ADIFF, BMP, CBC, W, ANEU #### [address] [address] Monocyte, Absolute 1.1 10 3/mcL Normal 0.1-1.4 [facility] ([place]) Comment on above: Performed By: #### G FR, ADIFF, BMP, CBC, W, ANEU #### [address] [address] Monocytes/100 WBC (Bld) 8.7 % Normal 2.0-13.0 [facility] ([place]) Comment on above: Performed By: #### G FR, ADIFF, BMP, CBC, W, ANEU #### [address] [address] Neutrophils/100 WBC (Bld) 72.8 % Normal 50.0-75.0 [facility] ([place]) Comment on above: Performed By: #### G FR, ADIFF, BMP, CBC, SHILA, ANEU #### [address] [address] .GFRon 08-25-2023 GFR >60 Normal [facility] ([place]) Comment on above: Result Comment: GFR Population mean for , Non- Americans Ages 20-29 = 116 mL/min/1.73 sq.m. Ages 30-39 = 107 mL/min/1.73 sq.m. Ages 40-49 = 99 mL/min/1.73 sq.m. Ages 50-59 = 93 mL/min/1.73 sq.m. Ages 60-69 = 85 mL/min/1.73 sq.m. Ages 70+ = 75 mL/min/1.73 sq.m. Chronic Kidney Disease: Less than 60 mL/min/1.73 square meters End Stage Renal Disease: Less than 15 mL/min/1.73 square meters Performed By: #### G FR, ADIFF, BMP, CBC, W, ANEU #### [address] [address] GFR Non- >60 Normal [facility] ([place]) Comment on above: Result Comment: GFR Population mean for , Non- Americans Ages 20-29 = 116 mL/min/1.73 sq.m. Ages 30-39 = 107 mL/min/1.73 sq.m. Ages 40-49 = 99 mL/min/1.73 sq.m. Ages 50-59 = 93 mL/min/1.73 sq.m. Ages 60-69 = 85 mL/min/1.73 sq.m. Ages 70+ = 75 mL/min/1.73 sq.m. Chronic Kidney Disease: Less than 60 mL/min/1.73 square meters End Stage Renal Disease: Less than 15 mL/min/1.73 square meters Performed By: #### G WENCESLAO FAN BMP, SHILA CHERY, ANEU #### [address] [address] .MDWon 08-25-2023 Monocyte Distribution Width 17.57 Normal 0.00-20.00 [facility] ([place]) Comment on above: Result Comment: For ED adult patients suspected of sepsis, MDW<=20.0 does not rule out sepsis or risk of sepsis Performed By: #### WENCESLAO GARCIA BMP, SHILA CHERY, ANEU #### [address] [address] .NEUABSon 08-25-2023 Neutrophil, Absolute 8.8 10 3/mcL High 2.3-8.1 [facility] ([place]) Comment on above: Performed By: #### G WENCESLAO FAN, GINGER, SHILA CHERY, ANEU #### [address] [address] BMPon 08-25-2023 BUN/Creatinine Ratio 22.4 ratio High 10.0-22.0 [facility] ([place]) Comment on above: Performed By: #### G , WENCESLAO, GINGER, SHILA CHERY, ANEU #### [address] [address] Calcium [Mass/Vol] 9.7 mg/dL Normal 8.7-10.4 [facility] ([place]) Comment on above: Performed By: #### Marleny FAN, WENCESLAO, GINGER, SHILA CHERY, ANEU #### [address] [address] Chloride [Moles/Vol] 94 mmol/L Low 98-110 [facility] ([place]) Comment on above: Performed By: #### G , WENCESLAO, GINGER, SHILA CHERY, ANEU #### [address] [address] CO2 [Moles/Vol] 23 mmol/L Normal 22-32 [facility] ([place]) Comment on above: Performed By: #### Marleny FAN, WENCESLAO, GINGER, SHILA CHERY, ANEU #### [address] [address] Creatinine [Mass/Vol] 0.85 mg/dL Normal 0.60-1.40 [facility] ([place]) Comment on above: Performed By: #### Marleny FAN, WENCESLAO, GINGER, SHILA CHERY, ANEU #### [address] [address] Electrolyte Balance 12.0 mEq/L Normal 4.0-15.0 [facility] ([place]) Comment on above: Performed By: #### Marleny FAN, WENCESLAO, GINGER, SHILA CHERY, ANEU #### [address] [address] Glucose [Mass/Vol] 81 mg/dL Normal 70-110 [facility] ([place]) Comment on above: Performed By: #### Marleny FAN, WENCESLAO, GINGER, SHILA CHERY, ANEU #### [address] [address] Potassium [Moles/Vol] 3.5 mmol/L Normal 3.5-5.0 [facility] ([place]) Comment on above: Performed By: #### Marleny FAN, WENCESLAO, GINGER, SHILA CHERY, ANEU #### [address] [address] Sodium [Moles/Vol] 129 mmol/L Low 136-145 [facility] ([place]) Comment on above: Performed By: #### Marleny FAN, ADJOSE, GINGER, VIK, SHILA, ANEU #### [address] [address] Urea nitrogen [Mass/Vol] 19.0 mg/dL Normal 8.0-22.0 [facility] ([place]) Comment on above: Performed By: #### G , WENCESLAO, GINGER, SHILA CHERY, ANEU #### [place] [address] CBCon 08-25-2023 Erythrocyte distribution width (RBC) [Ratio] 14.3 % Normal 11.5-15.5 [facility] ([place]) Comment on above: Performed By: #### G , WENCESLAO, GINGER, SHILA CHERY, ANEU #### [place] [address] Hematocrit (Bld) [Volume fraction] 43.4 % Normal 40.0-52.0 [facility] ([place]) Comment on above: Performed By: #### Marleny FAN, WENCESLAO, GINGER, SHILA CHERY, ANEU #### [place] [address] Hgb 15.2 G/dL Normal 13.0-17.5 [facility] ([place]) Comment on above: Performed By: #### G , WENCESLAO, GINGER, SHILA CHERY, ANEU #### [place] [address] MCH (RBC) [Entitic mass] 29.6 pg Normal 27.0-33.0 [facility] ([place]) Comment on above: Performed By: #### G , WENCESLAO, GINGER, SHILA CHERY, ANEU #### [place] [address] MCHC 35.0 G/dL Normal 32.0-36.0 [facility] ([place]) Comment on above: Performed By: #### G FR, ADJOSE, GINGER, SHILA CHERY, ANEU #### [place] [address] MCV (RBC) [Entitic vol] 84.5 fL Normal 81.0-100.0 [facility] ([place]) Comment on above: Performed By: #### G FR, ADJOSE, BMP, SHILA CHERY, ANEU #### [place] [address] Platelet 196 10 3/mcL Normal 150-450 [facility] ([place]) Comment on above: Performed By: #### G , WENCESLAO, GINGER, VIK, SHILA, ANEU #### [address] [address] Platelet mean volume (Bld) [Entitic vol] 9.5 fL Normal 6.4-10.5 [facility] ([place]) Comment on above: Performed By: #### G , WENCESLAO, GINGER, VIK, SHILA, ANEU #### [address] [address] RBC 5.13 10 6/mcL Normal 4.50-6.00 [facility] ([place]) Comment on above: Performed By: #### G , WENCESLAO, GINGER, VIK, SHILA, ANEU #### [place] [id number] WBC 12.1 10 3/mcL High 4.5-10.8 [facility] ([place]) Comment on above: Performed By: #### G , WENCESLAO, GINGER, SHILA CHERY, ANEU #### [address] [address] CNOVon 08-25-2023 CNOV Office Visit ([facility]) ---- ALBERTO QUINN ([id number]) 1995 M Date Time Provider Department 08/25/23 4:20 PM NITZA SALDANA [facility] During your visit today, we recorded the following information about you: Temperature Pulse Respiration Blood pressure 98.9 degrees 84/minute 24/minute 143/87 Daniel Reveles LPN 08/25/2023 4:50 PM Signed Blood glucose 90mg/dL. Patient tolerated well. Daniel Deleon LPN 08/25/2023 4:50 PM Signed 911 called to transport patient to ED for Eval and Treatment. MAIDA Nunez Laurie M, FAYE-C 08/25/2023 4:50 PM Signed ALBERTO Quinn is a 28 year old male who presents with Dizziness (Started today /Patient works out side /States he does drink enough water but feels like this is heat exhausted /), Fatigue (/Started today /), and Nausea AND Vomiting (Once today before coming in /) This is a 28-year-old male who presents with feeling generalized weak with muscle cramps and what he describes as hollow. He states he woke up this morning and arrived at work around 5:30 AM. 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 He states he feels he is Hydrated throughout the day with water. He last ate around 6:30 AM this morning. He states that about an hour before coming into the urgent care he started to feel overall weak and had some cramping in his arms and legs. He does feel little dizzy which she describes as feeling lightheaded, no room spinning sensation or feeling off balance. He denies any chest pain, shortness of breath, abdominal pain, visible blood in the urine, unilateral weakness or numbness, difficulty speaking or swallowing, changes in vision, slurred speech. Before coming into the urgent care he did try to eat however he felt nauseated and vomited once. No bloody or black stools. The history is provided by the patient. Dizziness The patient's primary symptoms include weakness. The patient's pertinent negatives include no focal weakness. Associated symptoms include dizziness, nausea and vomiting. Pertinent negatives include no abdominal pain, chest pain, fever or shortness of breath. Fatigue Associated symptoms include nausea, vomiting and weakness. Pertinent negatives include no abdominal pain, chest pain or fever. This is a 28-year-old male who presents PMHx: None reported Social History Tobacco Use Smoking status: Every Day Packs/day: 1 Types: Cigarettes Passive exposure: Current Smokeless tobacco: Never Vaping Use Vaping Use: Never used Substance Use Topics Alcohol use: Never Drug use: Never Review of Systems Constitutional: Positive for malaise/fatigue. Negative for fever. Respiratory: Negative for shortness of breath. Cardiovascular: Negative for chest pain. Gastrointestinal: Positive for nausea and vomiting. Negative for abdominal pain, blood in stool, diarrhea and melena. Genitourinary: Negative for hematuria. Neurological: Positive for dizziness and weakness. Negative for speech change, focal weakness, seizures and loss of consciousness. BP 143/87 Pulse 84 Temp (Src) 98.9 (Temporal) Resp 24 SpO2 99% Physical Exam Vitals and nursing note reviewed. Constitutional: General: He is not in acute distress. Appearance: He is not ill-appearing or toxic-appearing. HENT: Head: Normocephalic and atraumatic. Mouth/Throat: Comments: Mucous membranes slightly dry Eyes: General: No scleral icterus. Extraocular Movements: Extraocular movements intact. Conjunctiva/sclera: Conjunctivae normal. Pupils: Pupils are equal, round, and reactive to light. Cardiovascular: Rate and Rhythm: Normal rate and regular rhythm. Pulmonary: Effort: Pulmonary effort is normal. No respiratory distress. Breath sounds: No stridor. No wheezing, rhonchi or rales. Abdominal: General: There is no distension. Palpations: Abdomen is soft. Tenderness: There is no abdominal tenderness. There is no guarding. Musculoskeletal: Cervical back: Neck supple. Comments: He is able to move all extremities spontaneously without difficulty. Skin: General: Skin is warm and dry. Neurological: Mental Status: He is alert. Cranial Nerves: No cranial nerve deficit. Comments: Patient is awake however he is mildly obtunded/slow to respond. Oriented x 3. No lateralizing deficits. Motor is grossly intact. Accu-Chek obtained and glucose is 90 This is a 28-year-old male who presents with generalized weakness and muscle cramps after working all day today in the heat. He is hemodynamically stable. He is afebrile. No acute respiratory or airway compromise. No hypoxia. He does appear mildly dehydrated. Accu-Chek obtained and glucose is 90. Unable to appreciate any obvious focal neurologic deficits although he is slow to respond to verbal stimuli and when ambulating is somewhat slow with movements. I do suspect he cramps and possibly an elec (more content not included)... Normal [facility] GLUCOSE, BLOOD (POC)on 08-24 Glucose [Mass/Vol] 90 mg/dL 74 - 99 mg/dL [facility] Comment on above: Location:[facility], [address] [place] [address], [facility] The Accu-Chek Inform II glucose meter has not been approved for testing on patients receiving intensive medical intervention or therapy and results from this point of care glucose test should not be used for patient management decisions in these cases. Inaccurate results may also occur from other interfering factors, such as N-acetylcysteine (blood concentrations of greater than 5mg/dL), galactose, extremes of hematocrit (<10 or >65), or high doses of ascorbic acid (vitamin C) greater than 3mg/dL. Consider alternate testing mechanisms (e.g. core lab, blood gas instrument) in the above situations. [facility] LABORATORYOrdered By: SYSTEM SYSTEM on 08-25-2023 Basophils (Bld) [#/Vol] 0.1 103/mcL Normal 0.0 - 0.3 10^3/mcL AH Workflow SS Basophils/100 WBC (Bld) 0.5 % Normal 0.0 - 2.5 % AH Workflow SS Calcium [Mass/Vol] 9.7 mg/dL Normal 8.7 - 10. 4 mg/dL AH ADM SS Chloride [Moles/Vol] 94 mmol/L Low 98 - 11 0 mEq/L ADM SS CO2 [Moles/Vol] 23 mmol/L Normal 22 - 32 mEq/L AH ADM SS Creatinine [Mass/Vol] 0.85 mg/dL Normal 0.60 - 1.40 mg/dL AH ADM SS Electrolyte Balance 12.0 mEq/L Normal 4.0 - 15 .0 mEq/L AH ADM SS Eosinophils (Bld) [#/Vol] 0.1 103/mcL Normal 0.0 - 0.7 10^3/mcL AH Workflow SS Eosinophils/100 WBC (Bld) 0.6 % Normal 0.0 - 6.0 % AH Workflow SS Erythrocyte distribution width (RBC) [Ratio] 14.3 % Normal 11.5 - 15.5 % AH Workflow SS GFR/1.73 sq M.predicted among blacks MDRD (S/P/Bld) [Vol rate/Area] ml/min/1.73sqm Invalid Interpretation Code ADM SS Comment on above: Interpretive Data: GFR Population mean for , Non- Americans Ages 20-29 = 116 mL/min/1.73 sq.m. Ages 30-39 = 107 mL/min/1.73 sq.m. Ages 40-49 = 99 mL/min/1.73 sq.m. Ages 50-59 = 93 mL/min/1.73 sq.m. Ages 60-69 = 85 mL/min/1.73 sq.m. Ages 70+ = 75 mL/min/1.73 sq.m. Chronic Kidney Disease: Less than 60 mL/min/1.73 square meters End Stage Renal Disease: Less than 15 mL/min/1.73 square meters GFR/1.73 sq M.predicted among non-blacks MDRD (S/P/Bld) [Vol rate/Area] ml/min/1.73sqm Invalid Interpretation Code ADM SS Comment on above: Interpretive Data: GFR Population mean for , Non- Americans Ages 20-29 = 116 mL/min/1.73 sq.m. Ages 30-39 = 107 mL/min/1.73 sq.m. Ages 40-49 = 99 mL/min/1.73 sq.m. Ages 50-59 = 93 mL/min/1.73 sq.m. Ages 60-69 = 85 mL/min/1.73 sq.m. Ages 70+ = 75 mL/min/1.73 sq.m. Chronic Kidney Disease: Less than 60 mL/min/1.73 square meters End Stage Renal Disease: Less than 15 mL/min/1.73 square meters Glucose [Mass/Vol] 81 mg/dL Normal 70 - 110 mg/dL ADM SS Hematocrit (Bld) [Volume fraction] 43.4 % Normal 40.0 - 52.0 % AH Workflow SS Hemoglobin (Bld) [Mass/Vol] 15.2 G/dL Normal 13.0 - 17.5 G/dL Workflow SS Lymphocytes (Bld) [#/Vol] 2.1 103/mcL Normal 0.9 - 4.3 10^3/mcL AH Workflow SS Lymphocytes/100 WBC (Bld) 17.4 % Low 20.0 - 40.0 % AH Workflow SS MCH (RBC) [Entitic mass] 29.6 pg Normal 27.0 - 33.0 pg AH Workflow SS MCHC 35.0 G/dL Normal 32.0 - 36.0 G/dL AH Workflow SS MCV (RBC) [Entitic vol] 84.5 fL Normal 81.0 - 100.0 fL Workflow SS Monocyte distribution width Auto (Bld) [Entitic vol] 17.57 1 Normal 0.00 - 20.00 AH Workflow SS Comment on above: Result Comment: For ED adult patients suspected of sepsis, MDW<=20.0 does not rule out sepsis or risk of sepsis Monocytes (Bld) [#/Vol] 1.1 103/mcL Normal 0.1 - 1.4 10^3/mcL AH Workflow SS Monocytes/100 WBC (Bld) 8.7 % Normal 2.0 - 13.0 % AH Workflow SS Neutrophils (Bld) [#/Vol] 8.8 103/mcL High 2.3 - 8.1 10^3/mcL AH Workflow SS Neutrophils/100 WBC (Bld) 72.8 % Normal 50.0 - 75.0 % AH Workflow SS Platelet mean volume (Bld) [Entitic vol] 9.5 fL Normal 6.4 - 10.5 fL AH Workflow SS Platelets (Bld) [#/Vol] 196 103/mcL Normal 150 - 450 10^3/mcL AH Workflow SS Potassium [Moles/Vol] 3.5 mmol/L Normal 3.5 - 5.0 mEq/L AH ADM SS RBC (Bld) [#/Vol] 5.13 106/mcL Normal 4.50 - 6.0 0 10^6/mcL AH Workflow SS Sodium [Moles/Vol] 129 mmol/L Low 136 - 145 mEq/L AH ADM SS Urea nitrogen [Mass/Vol] 19.0 mg/dL Normal 8.0 - 22.0 mg/dL AH ADM SS Urea nitrogen/Creatinine [Mass ratio] 22.4 ratio High 10.0 - 22.0 ratio AH ADM SS WBC (Bld) [#/Vol] 12.1 103/mcL High 4.5 - 10.8 10^3/mcL Workflow SS Vital Signs Date Time Vital Sign Value Performing Clinician Facility 05-31-2024 10:040 Body height 177.8 cm Liane Cain [facility] [employer] [facility], [facility].; [facility] 05-31-2024 10:22-0400 Body mass index (BMI) [Ratio] 25.54 kg/m2 Liane Cain [facility], [facility].; [employer], [facility] 05-31-2024 10:22-0400 Body surface area Derived from formula 1.99 m2 Liane Cain [facility], [facility].; [facility] 05-31-2024 10:22-0400 Body weight 80.74 kg [facility].; [facility] [employer] [facility]. 05-31-2024 10:22-0400 Diastolic blood pressure 82 mm[Hg] [facility].; [facility] [employer]. Comment on above: Patient Position: Sitting; Cuff Location : Left Arm; Cuff Size: Standard 05-31-2024 10:22-0400 Heart rate 91 /min [facility] [employer]. Comment on above: Pattern: Regular 05-31-2024 10:22-0400 Systolic blood pressure 149 mm[Hg] [facility] [employer] [facility]. Comment on above: Patient Position: Sitting; Cuff Location : Left Arm; Cuff Size: Standard 08-25-2023 23:13-0400 Diastolic Blood Pressure Non-Invasive 73 mm[Hg] DR DONALD KOO MD [facility] 08-25-2023 23:13-0400 Heart rate 89 /min DR DONALD KOO MD [facility] 08-25-2023 23:13-0400 Systolic Blood Pressure Non-Invasive 127 mm[Hg] DR DONALD KOO MD [facility] 08-25-2023 22:51-0400 Diastolic Blood Pressure Non-Invasive 68 mm[Hg] DR DONALD KOO MD [facility] 08-25-2023 22:51-0400 Heart rate 81 /min DR DONALD KOO MD [facility] 08-25-2023 22:51-0400 Respiratory rate 18 /min DR DONALD KOO MD [facility] 08-25-2023 22:51-0400 Systolic Blood Pressure Non-Invasive 143 mm[Hg] DR DONALD KOO MD [facility] 08-25-2023 22:16-0400 Diastolic Blood Pressure Non-Invasive 61 mm[Hg] DR DONALD KOO MD [facility] 08-25-2023 22:16-0400 Heart rate 102 /min DR DONALD KOO MD [facility] 08-25-2023 22:16-0400 Respiratory rate 20 /min DR DONALD KOO MD [facility] 08-25-2023 22:16-0400 Systolic Blood Pressure Non-Invasive 119 mm[Hg] DR DONALD KOO MD [facility] 08-25-2023 17:17-0400 Body temperature 96.98 [degF] DR DONALD KOO MD [facility] 08-25-2023 17:17-0400 Body weight [address] DONALD KOO MD [facility] 08-25-2023 17:17-0400 Respiratory rate 20 /min DR DONALD KOO MD [facility] 08-25-2023 16:29-0400 Diastolic blood pressure 87 mm[Hg] Nitza Saldana PA-C Work Phone: [facility] 08-25-2023 16:29-0400 Heart rate 84 /min Nitza Saldana PA-C Work Phone: [facility] 08-25-2023 16:29-0400 Systolic blood pressure 143 mm[Hg] Nitza Saldana PA-C Work Phone: [facility] 08-25-2023 16:14-0400 Body temperature 98.91 [degF] Nitza Saldana PA-C Work Phone: [facility] 08-25-2023 16:14-0400 Respiratory rate 24 /min Nitza Saldana PA-C Work Phone: [facility] 08-25-2023 16:14-0400 SaO2% (BldA) [Mass fraction] 99 % Nitza Saldana PA-C Work Phone: [facility] 12-07-2011 08:16-0400 Body height 177.8 cm [facility] [employer] 12-07-2011 08:16-0400 Body mass index (BMI) [Percentile] Per age and sex 49 % [facility]enaida [facility]orden [facility] [employer] 12-07-2011 08:16-0400 Body mass index (BMI) [Ratio] 22.1 kg/m2 Beverly Michi [facility] [employer] 12-07-2011 08:16-0400 Body surface area Derived from formula 1.87 m2 [facility].; [employer] 12-07-2011 08:16-0400 Body temperature 97.4 [degF] [facility] Michi [facility].; [employer] Comment on above: Method: Tympanic 12-07-2011 08:16-0400 Body weight 69.85 kg Zenaida Borden [facility] [employer] 11-09-2010 07:59-0400 Body height 177.8 cm Mickey Neal MD Work Phone: [employer].; [employer] 11-09-2010 07:59-0400 Body mass index (BMI) [Percentile] Per age and sex 55 % Mickey Neal MD Work Phone: [employer].; [employer] 11-09-2010 07:59-0400 Body mass index (BMI) [Ratio] 21.86 kg/m2 Mickey Neal MD Work Phone: [employer] 11-09-2010 07:59-0400 Body surface area Derived from formula 1.86 m2 Mickey Neal MD Work Phone: [employer].; [employer] 11-09-2010 07:59-0400 Body temperature 96.6 [degF] Mickey Neal MD Work Phone: [employer] Comment on above: Method: Tympanic 11-09-2010 07:59-0400 Body weight 69.12 kg Mickey Neal MD Work Phone: [employer] 10-25-2010 14:53-0400 Body height 177.8 cm Mickey Neal MD Work Phone: [employer] 10-25-2010 14:53-0400 Body mass index (BMI) [Percentile] Per age and sex 55 % Mickey Neal MD Work Phone: [employer] 10-25-2010 14:53-0400 Body mass index (BMI) [Ratio] 21.81 kg/m2 Mickey Neal MD Work Phone: [employer] 10-25-2010 14:53-0400 Body surface area Derived from formula 1.86 m2 Mickey Neal MD Work Phone: [employer]; [employer] 10-25-2010 14:53-0400 Body temperature 98.2 [degF] Mickey Neal MD Work Phone: [employer] 10-25-2010 14:53-0400 Body weight 68.95 kg Mickey Neal MD Work Phone: [employer] 03-01-2010 17:11-0500 Body height 175.26 cm Mickey Neal MD Work Phone: [employer] 03-01-2010 17:11-0500 Body mass index (BMI) [Percentile] Per age and sex 64 % Mickey Neal MD Work Phone: [employer] 03-01-2010 17:11-0500 Body mass index (BMI) [Ratio] 22.15 kg/m2 Mickey Neal MD Work Phone: [facility].; [employer] 03-01-2010 17:11-0500 Body surface area Derived from formula 1.83 m2 Mickey Neal MD Work Phone: [facility] [employer] [facility].; [employer] 03-01-2010 17:11-0500 Body temperature 96.9 [degF] Mickey Neal MD Work Phone: [facility] [employer] [facility].; [employer] Comment on above: Method: Tympanic 03-01-2010 17:11-0500 Body weight 68.04 kg Mickey Neal MD Work Phone: [facility] [employer] [facility].; [employer] 02-17-2010 14:25-0500 Body height 175.26 cm Beverly Michi [facility], [employer] 02-17-2010 14:25-0500 Body mass index (BMI) [Percentile] Per age and sex 71 % Beverly Michi [facility] [employer] [facility].; [employer] 02-17-2010 14:25-0500 Body mass index (BMI) [Ratio] 22.74 kg/m2 Beverly Michi [facility] [employer] [facility].; [employer] 02-17-2010 14:25-0500 Body surface area Derived from formula 1.85 m2 Beverly Stuckey [facility], [employer] 02-17-2010 14:25-0500 Body temperature 98.1 [degF] [facility] Michi [facility] [employer] [facility].; [employer] Comment on above: Method: Tympanic 02-17-2010 14:25-0500 Body weight 69.85 kg Zenaida Borden [facility], [employer] 02-17-2010 14:25-0500 Inhaled oxygen concentration 21 % Beverly Michi [facility].; [employer] Comment on above: Room air 02-17-2010 14:25-0500 SaO2% (BldA) [Mass fraction] 98 % Zenaida Borden MAIDA [facility].; [facility] Encounters Encounter Date Encounter Type Care Provider Facility Start: 01-20-2025 ambulatory Joselinantonio Isidrobert Morgan ty:[facility] Start: 01-07-2025 End: 01-07-2025 ambulatory Marisol MCKINNEY Facility:[facility] Start: 09-24-2024 End: 09-25-2024 Emergency department patient visit TANGELA Lynn ADGM[facility] Start: 08-13-2024 End: 08-13-2024 Orders Mickey Neal MD Work Phone: [facility] Start: 07-01-2024 ambulatory Holland Marrero Facility :[facility] Start: 06-10-2024 End: 06-10-2024 ambulatory Holland Marrero Facility:[facility] Start: 05-31-2024 End: 05-31-2024 Office outpatient new 20 minutes Mickey Neal MD Work Phone: [facility] Start: 05-31-2024 Review Mickey Neal MD Work [facility]: [facility] Start: 05-10-2024 End: 05-10-2024 Emergency department patient visit ARIANNA MAC [facility] Start: 08-25-2023 End: 08-25-2023 Emergency department patient visit DR DONALD KOO MD [facility] Start: 08-25-2023 End: 08-25-2023 Patient encounter procedure Nitza Saldana PA-C Work Phone: [facility] Comment on above: Generalized weakness (Primary Dx); Heat cramps, initial encounter Start: 08-25-2023 End: 08-25-2023 ambulatory NITZA SALDANA Facility:[id number] Start: 06-09-2017 End: 06-09-2017 Telephone follow-up Mickey Neal MD Work Phone: [employer] Start: 12-14-2011 End: 12-14-2011 Orders Mickey Neal MD Work Phone: [employer] Start: 12-07-2011 End: 12-07-2011 Patient encounter procedure Mickey Neal MD Work Phone: [employer] Start: 11-09-2010 End: 11-09-2010 Medication Mickey Neal MD Work Phone: [employer] Start: 11-09-2010 End: 11-09-2010 Patient encounter procedure Mickey Neal MD Work Phone: [employer] Start: 10-25-2010 End: 10-25-2010 Patient encounter procedure Mickey Neal MD Work Phone: [employer] Start: 03-01-2010 End: 03-01-2010 Patient encounter procedure Mickey Neal MD Work Phone: [employer] Start: 02-17-2010 End: 02-17-2010 Patient encounter procedure Mickey Neal MD Work Phone: [employer] Procedures Date Procedure Procedure Detail Performing Clinician Start: 08-25-2023 Gluc bld gluc mntr d ev cleared fda spec home use [facility] Provider Start: 12-08-2011 End: 03-08-2012 Radex wrist complete minimum 3 views Mickey Neal MD Work Phone: Start: 11-09-2010 End: 11-09-2010 Us scrotum & contents Mickey Neal MD Work Phone: Plan of Treatment Date Care Activity Detail Author Start: 11-05-2023 Influenza vaccination Influenz a Vaccine (Season Ended) [facility] Start: 03-06-2023 Behavioral Health Screening Behavioral Health Screening [facility] Start: 11-04-2022 Covid-19 Vaccine ( season) Covid-19 Vaccine ( season) [facility] Start: 2012 Hepatitis B Vaccine (1 of 3 - 19+ 3-dose series) Hepatitis B Vaccine (1 of 3 - 19+ 3-dose series) [facility] Start: 2012 Urine microalbumin profile DTaP,Tdap,Td Vaccine (1 - Tdap) [facility] Start: 06-05-2011 Hepatitis C screening Hepatitis C Sc gloryning [facility] Start: 06-05-2011 HIV screening HIV Screening [facility] Glucose [Mass/volume ] in Serum or Plasma GLUCOSE, BLOOD (POC) Lab Routine Generalized weakness Ordered: 08/25/2023 [facility] Work Phone: Comment on above: Ordered: 08/25/2023 Payers Date Payer Category Payer Unknown [id number] 2024 Unknown [id number] 2023 Self-pay 1995 Unknown [id number] [id number] 1995 Unknown [id number] 2.16.8 [id number] 1995 Unknown [id number] 2.16.8 [id number] Unknown [id number] 2.16.8 [id number] Unknown [id number] 2.16.8 [id number] Unknown [id number] 2.16.8 [id number] Unknown [id number] 2.16.8 [id number] Social History Date Type Detail Facility Tobacco smoking status [facility] Sex Assigned At Male [facility] Start: 08-25-2023 Tobacco smoking stat us NHIS Smokes tobacco daily [facility] History of tobacco use Cigarette Smoker C [facility] Start: 08-25-2023 Cigarettes smoked current (pack per day) - Reported 1 [facility] History of tobacco use Passive smoker [facility] Start: 08-25-2023 Tobacco use and exposure Smokeless tobacco non-user [facility] Start: 08-25-2023 Alcohol intake Lifetime non-d pascual (finding) [facility] Start: 08-25-2023 Tobacco use panel [facility] Start: 1995 Sex Assigned At Not on file C [facility] Tobacco/Smoke Exposure: Tobacco/ Smoke Exposure: ; Family members smoke indoors. [employer] Family members s moke indoors [employer]; [employer] [facility]. Work Phone: Functional Status Date Assessment Result Facility 08-25-2023 Functional Status ID band on, Safety level maintained [facility] Mental Status Date Assessment Result Facility 08-25-2023 [facility] 08-25-2023 to 05-10-2024 Daniel Reveles LPN - 08/25/2023 4:44 PM Nitza Junior PA-C - 08/25/2023 4:34 PM EDTWhDaniel navarrete LPN - 08/25/2023 4:31 PM EDTWhDaniel navarrete LPN - 08/25/2023 4:28 PM EDT Note Date & Type Note Facility 05-10-2024 Note Discharge Instructio ns Discharge Summary [address] [place] [address] [id number] 05/10/2024 Patient: ALBERTO QUINN Sex: Male : 1995 Age: 28y Thank you for visiting [facility]. You have been evaluated today by Arianna Marcos M.D. for the following condition(s): Principal Diagnosis Acute eye pain left eye. Corneal foreign body left eye. INSTRUCTIONS (As discussed, please follow-up with the ophthalmology said they, all tomorrow. Tomorrow is Monday, so you should try to follow up today. Please use antibiotic to the affected eye 4 times a day). Follow-up with: Gumaro Nicolas MD, [facility], Opthalmalogy, Phone: [phone], [facility] [facility], [place] [address]. Follow up today. 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 [address] [phone] 05/10/2024 Patient: ALBERTO QUINN Sex: Male : 1995 Age: 28y Thank you for visiting [facility]. You have been evaluated today by Arianna Marcos M.D. for the following condition(s): Principal Diagnosis Acute eye pain left eye. Corneal foreign body left eye. INSTRUCTIONS (As discussed, please follow-up with the ophthalmology said they, all tomorrow. Tomorrow is Monday, so you should try to follow up today. Please use antibiotic to the affected eye 4 times a day). Follow-up with: Gumaro Nicolas MD, [facility], Opthalmalogy, Phone: [phone], [facility] [facility], [place] [address]. Follow up today. ADDITIONAL INFORMATION 2 of 6 Discharge Instructions Corneal Abrasion You have a scratch or scrape (abrasion) on your cornea. The cornea is the clear part in the front of the eye. This sensitive area is very painful when injured. You may make tears frequently, and your vision may be blurry until the injury heals. You may be sensitive to light. This part of the body heals quickly. You can expect the pain to go away within 24 to 48 hours. If the abrasion is large or deep, your doctor may apply an eye patch, although this is not always done. An antibiotic ointment or eye drops may also be used to prevent infection. Numbing drops may be used to relieve the pain temporarily so that your eyes can be examined. But these drops can't be prescribed for home use because that would prevent healing and lead to more serious problems. Also, if you can't feel your eye, there is a chance of accidentally injuring it further without knowing it. Home care A cold pack may be applied over the eye (or eye patch) for 20 minutes at a time, to reduce pain. To make a cold pack, put ice cubes in a plastic bag that seals at the top. Wrap the bag in a clean, thin towel or cloth. You may use acetaminophen or ibuprofen to control pain, unless another pain medicine was prescribed. If you have chronic liver or kidney disease, talk with your healthcare provider before using these medicines. Also talk with your provider if you have ever had a stomach ulcer or gastrointestinal bleeding. Rest your eyes and don't read until symptoms are gone. If you use contact lenses, don't wear them until all symptoms are gone. 3 of 6 Discharge Instructions If your vision is affected by the corneal abrasion or if an eye patch was applied, don't drive a motor vehicle or operate machinery until all symptoms are gone. You may have trouble judging distances using only one eye. If your eyes are sensitive to light, try wearing sunglasses, or stay indoors until symptoms go away. Follow-up care Follow up with your healthcare provider, or as advised. If no patch was put on your eye and the pain continues for more than 48 hours, you should have another exam. Contact your healthcare provider to arrange this. If your eye was patched and you were asked to remove the patch yourself, see your healthcare provider. Contact your healthcare provider if you still have pain after the patch is removed. If you were given a return appointment for patch removal and re-examination, be sure to keep the appointment. Leaving the patch in place longer than advised could be harmful. When to seek medical advice Call your healthcare provider right away if any of these occur. Eye pain gets worse or does not get better after 24 hours Discharge from the eye Redness of the eye or swelling of the eyelids gets worse Vision gets worse Symptoms get worse after the abrasion has healed 4 of 6 Discharge Instructions Particle Removed from Eye with Rust Ring (Corneal Foreign Body (more content not included)... [facility] 08-26-2023 Hospital Discharge instructions Patient Education 08/25/2023 23:02:40 Heat Exhaustion Heat Exhaustion Heat exhaustion is a condition that develops during prolonged exposure to heat. It is more likely to occur during strenuous activity, such as exercise or manual labor. Symptoms include a fast heartbeat, excess sweating, extreme tiredness, muscle cramps, headache, and weakness. They may also include stomach cramps, nausea, and vomiting. The person may be lightheaded and dizzy, and may even faint. Treatment for heat exhaustion involves cooling the body down and replacing lost fluids, electrolytes, and salts. Cooling may be done with fans, cold cloths, or a cold-water bath. Fluids are best replaced by drinking electrolyte solution, a sports drink, or water with 2 teaspoons of salt added for each 8 ounces. If a person is very dehydrated, confused, or unable to drink, IV (intravenous) fluids will likely be needed. Heat exhaustion can progress to a serious condition called heatstroke, so it should be treated right away. Home care Continue to drink extra cold fluids at home during the next 12 to 24 hours. Water, electrolyte solution, or sports drinks are advised. Avoid alcohol and caffeine. Preventing heat illness Protect yourself from the heat. Wear lightweight, light-colored clothing and a broad-brimmed hat. Drink plenty of fluids before and during activity. Limit exercise in hot or very humid weather. If you have to be active in the heat, take frequent breaks to drink fluids and cool down. Don't exercise when you are feeling ill. Watch for symptoms of heat illness such as exhaustion, excess sweating, and lightheadedness. If any occur, move to a cool place, rest, and drink cool fluids. Lying down with your legs raised slightly can help you recover. Don't use alcohol or caffeine. Follow-up care Follow up with your healthcare provider, or as advised. When to seek medical advice Call your healthcare provider right away if any of these occur: You can't keep fluids down Vomiting or diarrhea Hot flushed skin Symptoms get worse or you have new symptoms Call 911 Call 911 for any of these symptoms of heatstroke: Confusion Irrational behavior Hallucinations Trouble walking Seizures Passing out Fever of 104 F (40 C) or higher [id number] [employer]. [address] [place] [address]. All rights reserved. This information is not intended as a substitute for professional medical care. Always follow your healthcare professional's instructions. Follow Up Care 08/25/2023 17:16:16 With:SANA [facility] Address: [address] [place] [phone] When:2-4 days [facility] 08-25-2023 Emergency department Discharge summary Discharge Instructions Thank you for allowing [facility] to assist you with your healthcare needs. The following is important discharge information regarding your hospital visit. What to Do Next Instructions from Your Care Team No qualifying data available. Post Acute Orders No qualifying data available. You Need to Schedule the Following Appointments Follow Up with [facility] When:Within 2-4 days Where:[address] [place] [address] [phone] Allergies NKA Medications Please ask your primary doctor or pharmacist before taking any other medication not listed, including over the counter drugs, herbal medications, vitamins and or supplements as they may interact with your home medications. Please take this list to your next doctor s visit. Bring all medications you take, including over the counter medications, herbals and other supplements with you to your doctor s visit. Patients and families are reminded to discard old lists and to update any records with all medication providers or retail pharmacies. Education Materials Heat Exhaustion Heat exhaustion is a condition that develops during prolonged exposure to heat. It is more likely to occur during strenuous activity, such as exercise or manual labor. Symptoms include a fast heartbeat, excess sweating, extreme tiredness, muscle cramps, headache, and weakness. They may also include stomach cramps, nausea, and vomiting. The person may be lightheaded and dizzy, and may even faint. Treatment for heat exhaustion involves cooling the body down and replacing lost fluids, electrolytes, and salts. Cooling may be done with fans, cold cloths, or a cold-water bath. Fluids are best replaced by drinking electrolyte solution, a sports drink, or water with 2 teaspoons of salt added for each 8 ounces. If a person is very dehydrated, confused, or unable to drink, IV (intravenous) fluids will likely be needed. Heat exhaustion can progress to a serious condition called heatstroke, so it should be treated right away. Home care Continue to drink extra cold fluids at home during the next 12 to 24 hours. Water, electrolyte solution, or sports drinks are advised. Avoid alcohol and caffeine. Preventing heat illness Protect yourself from the heat. Wear lightweight, light-colored clothing and a broad-brimmed hat. Drink plenty of fluids before and during activity. Limit exercise in hot or very humid weather. If you have to be active in the heat, take frequent breaks to drink fluids and cool down. Don't exercise when you are feeling ill. Watch for symptoms of heat illness such as exhaustion, excess sweating, and lightheadedness. If any occur, move to a cool place, rest, and drink cool fluids. Lying down with your legs raised slightly can help you recover. Don't use alcohol or caffeine. Follow-up care Follow up with your healthcare provider, or as advised. When to seek medical advice Call your healthcare provider right away if any of these occur: You can't keep fluids down Vomiting or diarrhea Hot flushed skin Symptoms get worse or you have new symptoms Call 911 Call 911 for any of these symptoms of heatstroke: Confusion Irrational behavior Hallucinations Trouble walking Seizures Passing out Fever of 104 F (40 C) or higher [id number] [employer]. [address] [place] [address], [place] [address]. All rights reserved. This information is not intended as a substitute for professional medical care. Always follow your healthcare professional's instructions. Additional Information VACCINATE! IT SAVES LIVES! Members of the community who have not yet received the COVID-19 vaccine and would like to receive it can visit one of [facility] vaccine clinics. There are many vaccine clinic locations within the [facility]. For locations and available times, please visit [email or web address] [email or web address] It is important to note that some COVID mobile vaccine clinics are held outdoors and may be canceled in rainy or stormy conditions. To learn more about pediatric vaccinations (ages 5-11), we invite you to visit the [facility] webpage. [email or web address] [email or web address] To learn more about the COVID-19 vaccine, we invite you to visit the CDC website for a list of frequently asked questions. https://www.cdc.gov/coronavirus/ 2019-ncov/vaccines/faq.html [facility] Patient Portal Access Instructions: Stay connected with your healthcare team and access your personal medical information anytime with the [facility] Patient Portal. If you would like a full copy of your medical records please contact the [facility] Medical Records Department Monday through Monday between 8a.m. and 4:30p.m. Please follow the directions below to access the portal: 1.Access the email account you provided upon registration to the [facility].2.Look for an invitation email from [facility].3.Open the email and access the invitation link: Accept Invitation to [facility].Fill in the required collado to create your account. Sign into [email or web address] with your username and password that you created in the above steps to stay up to date. You can then view a summary of results, a summary of your visits, and the ability to download your summaries to your computer or send the information securely to a physician. Remember that your healthcare information is confidential, so carefully consider who you will allow to register on the [facility] Patient Portal for access to your information. You can also access the [facility] Patient Portal on the [employer]. Simply click on "Health Records" under "Health Data" and then click on the [facility] logo. HOW TO SAFELY DISPOSE OF PRESCRIPTION MEDICATIONS Please use one of the following methods to safely dispose of your unused medications. 1.Use a drug disposal kit: the drug disposal pouch allows you to safely discard your old and unused drugs. Ask your nurse to give you one when you are discharged.2.Visit a local take-back location: Many local pharmacies and police departments have programs that collect old and unwanted prescription drugs. Call your local pharmacy or go to http://[email or web address] to find one close to you.3.Make use of household items: Use cat litter or old coffee grounds to dispose medications if other options are not available. Mix your drugs with these household products, seal them in an airtight container and throw it into the garbage. Call [facility]: [phone] to be sure your drugs can be disposed of in this way. Some medicines may require a different approach.4.Never flush your medications down the toilet. IF YOU HAVE BEEN PRESCRIBED AN OPIOIDS FOR PAIN If you have been prescribed an opioid (such as hydrocodone, oxycodone or morphine), it is critical to understand the possible side effects and risks of opioid pain medications. Even when taken as directed, opioids can have several side effects including: Tolerance, meaning you might need to take more of a medication for the same pain relief. Nausea, vomiting and/or constipation. Sleepiness, dizziness, dry mouth, confusion, depression or itching. Physical dependence, meaning you have withdrawal symptoms when a medication is stopped ? this can develop within a few days. KNOW YOUR RESPONSIBILITIES It is important to know exactly how much and how often to take the opioid pain medications you are prescribed. Never take opioids in higher amounts or more often than prescribed. Do not combine opioids with alcohol or other drugs that cause drowsiness, such as benzodiazepines, also known as benzos, including diazepam and alprazolam, muscle relaxants or sleep aids. Never sell or share prescription opioids. This is illegal. Store opioids in a secure place and out of reach of others (including children, family, friends and visitors). The last page(s) of this document has been signed and retained as a CHART COPY Signatures Patient Education Materials Heat Exhaustion Medication Leaflets My discharge plan and instructions have been reviewed and explained to me and I,ALBERTO QUINN understand my current condition and have read and understand these discharge instructions. I have received a written copy of the plan/instructions. If I have questions, I am aware that I should contact my doctor. 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 Author Type: LICENSED NURSE Type: Progress Notes Filed: 08/25/2023 16:50 Note Text: 911 arrived to transport patient to ED for eval and treatment. Daniel Reveles LPN [facility] 08-25-2023 History of Present illness Narrative 911 arrived to transport patient to ED for eval and treatment. 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 He states he woke up this morning and arrived at work around 5:30 AM. 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 He states he feels he is Hydrated throughout the day with water. He last ate around 6:30 AM this morning. He states that about an hour before coming into the urgent care he started to feel overall weak and had some cramping in his arms and legs. He does feel little dizzy which she describes as feeling lightheaded, no room spinning sensation or feeling off balance. He denies any chest pain, shortness of breath, abdominal pain, visible blood in the urine, unilateral weakness or numbness, difficulty speaking or swallowing, changes in vision, slurred speech. Before coming into the urgent care he did try to eat however he felt nauseated and vomited once. No bloody or black stools. The history is provided by the patient. Dizziness The patient's primary symptoms include weakness. The patient's pertinent negatives include no focal weakness. Associated symptoms include dizziness, nausea and vomiting. Pertinent negatives include no abdominal pain, chest pain, fever or shortness of breath. Fatigue Associated symptoms include nausea, vomiting and weakness. Pertinent negatives include no abdominal pain, chest pain or fever. This is a 28-year-old male who presents PMHx: None reported Social History Tobacco Use Smoking status: Every Day Packs/day: 1 Types: Cigarettes Passive exposure: Current Smokeless tobacco: Never Vaping Use Vaping Use: Never used Substance Use Topics Alcohol use: Never Drug use: Never Review of Systems Constitutional: Positive for malaise/fatigue. Negative for fever. Respiratory: Negative for shortness of breath. Cardiovascular: Negative for chest pain. Gastrointestinal: Positive for nausea and vomiting. Negative for abdominal pain, blood in stool, diarrhea and melena. Genitourinary: Negative for hematuria. Neurological: Positive for dizziness and weakness. Negative for speech change, focal weakness, seizures and loss of consciousness. BP 143/87 Pulse 84 Temp (Src) 98.9 (Temporal) Resp 24 SpO2 99% Physical Exam Vitals and nursing note reviewed. Constitutional: General: He is not in acute distress. Appearance: He is not ill-appearing or toxic-appearing. HENT: Head: Normocephalic and atraumatic. Mouth/Throat: Comments: Mucous membranes slightly dry Eyes: General: No scleral icterus. Extraocular Movements: Extraocular movements intact. Conjunctiva/sclera: Conjunctivae normal. Pupils: Pupils are equal, round, and reactive to light. Cardiovascular: Rate and Rhythm: Normal rate and regular rhythm. Pulmonary: Effort: Pulmonary effort is normal. No respiratory distress. Breath sounds: No stridor. No wheezing, rhonchi or rales. Abdominal: General: There is no distension. Palpations: Abdomen is soft. Tenderness: There is no abdominal tenderness. There is no guarding. Musculoskeletal: Cervical back: Neck supple. Comments: He is able to move all extremities spontaneously without difficulty. Skin: General: Skin is warm and dry. Neurological: Mental Status: He is alert. Cranial Nerves: No cranial nerve deficit. Comments: Patient is awake however he is mildly obtunded/slow to respond. Oriented x 3. No lateralizing deficits. Motor is grossly intact. Accu-Chek obtained and glucose is 90 This is a 28-year-old male who presents with generalized weakness and muscle cramps after working all day today in the heat. He is hemodynamically stable. He is afebrile. No acute respiratory or airway compromise. No hypoxia. He does appear mildly dehydrated. Accu-Chek obtained and glucose is 90. Unable to appreciate any obvious focal neurologic deficits although he is slow to respond to verbal stimuli and when ambulating is somewhat slow with movements. I do suspect he cramps and possibly an electrolyte disturbance and he may require IV hydration. At this time I have lower clinical concern for heatstroke or heat injury although he may be suffering some mild heat exhaustion. Given he felt dizzy when walking and his friend who drove him here was a little bit uneasy transferring him to the ER as well as a clinical exam I do recommend that he be transported by EMS to the emergency department. EMS personnel did arrive and transported the patient in stable condition. (R53.1) Generalized weakness (primary encounter diagnosis) Plan: GLUCOSE, BLOOD (POC) (T67.2XXA) Heat cramps, initial encounter Nitza Saldana PA-C This document has been created with the use of voice recognition technology. Every effort was taken to correct for errors however it may contain inaccuracies, misspellings, syntax errors, or word sense that escaped review. Please inquire further with the author for clarification if needed. 911 called to transport patient to ED for Eval and Treatment. Daniel Reveles LPN Blood glucose 90mg/dL. Patient tolerated well. erythromycin documented in this encounter [facility] 08-25-2023 Note HNO ID: [id number] Author: NITZA SALDANA PA-C Service: ? 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 He states he woke up this morning and arrived at work around 5:30 AM. 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 He states he feels he is Hydrated throughout the day with water. He last ate around 6:30 AM this morning. He states that about an hour before coming into the urgent care he started to feel overall weak and had some cramping in his arms and legs. He does feel little dizzy which she describes as feeling lightheaded, no room spinning sensation or feeling off balance. He denies any chest pain, shortness of breath, abdominal pain, visible blood in the urine, unilateral weakness or numbness, difficulty speaking or swallowing, changes in vision, slurred speech. Before coming into the urgent care he did try to eat however he felt nauseated and vomited once. No bloody or black stools. The history is provided by the patient. Dizziness The patient's primary symptoms include weakness. The patient's pertinent negatives include no focal weakness. Associated symptoms include dizziness, nausea and vomiting. Pertinent negatives include no abdominal pain, chest pain, fever or shortness of breath. Fatigue Associated symptoms include nausea, vomiting and weakness. Pertinent negatives include no abdominal pain, chest pain or fever. This is a 28-year-old male who presents PMHx: None reported Social History Tobacco Use Smoking status: Every Day Packs/day: 1 Types: Cigarettes Passive exposure: Current Smokeless tobacco: Never Vaping Use Vaping Use: Never used Substance Use Topics Alcohol use: Never Drug use: Never Review of Systems Constitutional: Positive for malaise/fatigue. Negative for fever. Respiratory: Negative for shortness of breath. Cardiovascular: Negative for chest pain. Gastrointestinal: Positive for nausea and vomiting. Negative for abdominal pain, blood in stool, diarrhea and melena. Genitourinary: Negative for hematuria. Neurological: Positive for dizziness and weakness. Negative for speech change, focal weakness, seizures and loss of consciousness. BP 143/87 Pulse 84 Temp (Src) 98.9 (Temporal) Resp 24 SpO2 99% Physical Exam Vitals and nursing note reviewed. Constitutional: General: He is not in acute distress. Appearance: He is not ill-appearing or toxic-appearing. HENT: Head: Normocephalic and atraumatic. Mouth/Throat: Comments: Mucous membranes slightly dry Eyes: General: No scleral icterus. Extraocular Movements: Extraocular movements intact. Conjunctiva/sclera: Conjunctivae normal. Pupils: Pupils are equal, round, and reactive to light. Cardiovascular: Rate and Rhythm: Normal rate and regular rhythm. Pulmonary: Effort: Pulmonary effort is normal. No respiratory distress. Breath sounds: No stridor. No wheezing, rhonchi or rales. Abdominal: General: There is no distension. Palpations: Abdomen is soft. Tenderness: There is no abdominal tenderness. There is no guarding. Musculoskeletal: Cervical back: Neck supple. Comments: He is able to move all extremities spontaneously without difficulty. Skin: General: Skin is warm and dry. Neurological: Mental Status: He is alert. Cranial Nerves: No cranial nerve deficit. Comments: Patient is awake however he is mildly obtunded/slow to respond. Oriented x 3. No lateralizing deficits. Motor is grossly intact. Accu-Chek obtained and glucose is 90 This is a 28-year-old male who presents with generalized weakness and muscle cramps after working all day today in the heat. He is hemodynamically stable. He is afebrile. No acute respiratory or airway compromise. No hypoxia. He does appear mildly dehydrated. Accu-Chek obtained and glucose is 90. Unable to appreciate any obvious focal neurologic deficits although he is slow to respond to verbal stimuli and when ambulating is somewhat slow with movements. I do suspect he cramps and possibly an electrolyte disturbance and he may require IV hydration. At this time I have lower clinical concern for heatstroke or heat injury although he may be suffering some mild heat exhaustion. Given he felt dizzy when walking and his friend who drove him here was a little bit uneasy transferring him to the ER as well as a clinical exam I do recommend that he be transported by EMS to the emergency department. EMS personnel did arrive and transported the patient in stable condition. (R53.1) Generalized weakness (prima (more content not included)... [facility] 08-25-2023 Note HNO ID: [id number] Author: DANIEL REVELES LPN Service: ? Author Type: LICENSED NURSE Type: Progress Notes Filed: 08/25/2023 16:50 Note Text: 911 called to transport patient to ED for Eval and Treatment. Daniel Reveles LPN [facility] 08-25-2023 Note HNO ID: [id number] Author: DANIEL REVELES LPN Service: ? Author Type: LICENSED NURSE Type: Progress Notes Filed: 08/25/2023 16:50 Note Text: Blood glucose 90mg/dL. Patient tolerated well. erythromycin [facility] Evaluation + Plan note No data available for this section [facility] Evaluation note Diagnosis Generalized weakness- Primary Other malaise and fatigue Heat cramps, initial encounter documented in this encounter [facility] Summary Purpose Family History No Family History Records Found Advance Directives No Advanced Directives Records FoundNo Advanced Directives Records FoundNo Advanced Directives Records FoundNo Advanced Directives Records Found Additional Source Comments Patient Care team informatio n (unrecognized section and content) Care Team Personnel Name: PHYSICIAN, NONE Position: Physician Member Role: Primary Care Physician Care Team Related Persons Name: MARIA TERESA MENDOZA (unrecognized sect ion and content) No Status Records FoundNo Status Records FoundNo Status Records FoundNo Status Records Found INFORMATION SOURCE (unrecogn ized section and content) DATE CREATED AUTHOR 08/29/2023 [facility] DATE CREATED AUTHOR AUTHOR'S ORGANIZ ATION 09/20/2023 [facility] ([place]) DATE CREATED AUTHOR AUTHOR'S ORGANIZ ATION 09/26/2024 [facility] DATE CREATED AUTHOR AUTHOR'S ORGANIZ ATION 01/16/2025 [facility] Source Comments (unrecognize d section and content) In the event this informatio n is protected by the Federal Confidentiality of Alcohol and Drug Abuse Patient Records regulations: The Federal rules restrict any use of the information to criminally investigate or prosecute any alcohol or drug abuse patient.[facility] Reason for Visit (unrecogniz ed section and content) Reason Comments Dizziness Started today 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 This clinical summary was aggregated from multiple sources. Caution should be exercised in using it in the provision of clinical care. This summary normalizes information from multiple sources, and as a consequence, information in this document may materially change the coding, format and clinical context of patient data. In addition, data may be omitted in some cases. CLINICAL DECISIONS SHOULD BE BASED ON THE PRIMARY CLINICAL RECORDS. [facility] [facility]. provides no warranty or guarantee of the accuracy or completeness of information in this document.
[2025-01-20] MEDS: Midazolam 2 MG/2 ML Syringe IV (12:20)
[2025-01-20] MEDS: Cefazolin 1 GM/5 ML Vial 2 GM IV (12:24)
[2025-01-20] MEDS: dexMEDEtomidine 200 MCG/2 ML ML 30 MCG IV (12:45)
[2025-01-20] MEDS: Lidocaine 1% (5 ml sdv) 5 ML Vial 15 ML IV (13:57)
--- NOTE | 2025-01-20 13:57 | DCINST_ITS ---
Discharge Instructions Diet Discharge Diet: Light diet - advance as tolerated Activity May shower in (days): 1 Ice area for (Minutes): 30 Lifting Restrictions: No lifting pushing or pulling more than 20 pounds for 6 weeks Dressing / Incision Call your doctor if your incision/area has: Continuous Slow Oozing, Sudden Increased Bleeding, Increased Pain/ Swelling, Increased Redness, Foul Smelling Discharge and Swelling at the incision site Call your doctor if you observe: Fever of 101 or Higher Cleanse incision/area with: Soap & Water Follow Up Care Please Follow Up With: Holland Marrero MD When: 2 weeks. Please call office to schedule appointment Test Results: Test results from this visit will be discussed in further detail at your follow- up appointment, if applicable. Discharge Plan Admission Primary Reason for Your Visit: Robotic right inguinal hernia repair with mesh and umbilical hernia repair Attending Provider: Holland Marrero Primary Care Provider: Christofer Felix Instructions Print Language: Bulgarian Discharge Orders/Prescriptions Prescriptions: New oxycodone 5 mg tablet 5 mg PO Q8H PRN (Reason: pain) 3 Days Qty: 12 0RF Referrals / Follow Up: Christofer Felix PA [Primary Care Provider, Urgent Care] Disposition Disposition (needs filled in before D/C Order can be placed): Home, Self Care
[2025-01-20] MEDS: Bupiv/Epi 0.25% 30 ML Vial (14:01)
--- NOTE | 2025-01-20 14:03 | PCM.OPRPT ---
Procedures Digestive 40xxx-49xxx: 17760 RPR AA HRN 1ST < 3 NCR/STRN Operative Report (Standard) Operative Information Date of Procedure: 01/20/25 Pre-Operative Diagnosis: 1. Right inguinal hernia 2. Umbilical hernia Post-Operative Diagnosis: Same Surgery/Procedure Performed: 1. Robotic right inguinal hernia pair with mesh 2. Umbilical hernia repair pediatric nephrologist: Yes Office Machines Teacher: Chris Luna Tasks completed by executive administrative assistant: Closing, Trocar and Other Additional recruiting assistant?: No Type of Anesthesia: General and Local RN Documented Start/Stop Times: Operation Date: 01/20/25 12:15 Case Time Into Pre-Op 01/20/25 11:03 Anesthesia Start 01/20/25 12:14 Into Room 01/20/25 12:14 Procedure Start 01/20/25 12:34 Procedure Start Time: 12:34 Procedure Stop Time: 14:05 Select all DRAINS/GRAFTS/IMPLANTS that apply: None Special Medications: 2 g Ancef IV Estimated Blood Loss: Minimal Specimen collected: No Description of surgery: Patient is a 29-year-old male recently seen to the office with a right inguinal hernia as well as a small umbilical hernia. He had had the right inguinal hernia for several years. He wished to have this repaired as this was causing him increasing pain and discomfort. He also had a small umbilical hernia. I offered him a robotic right inguinal hernia repair with mesh along with simultaneous umbilical hernia repair surgery. We discussed the details of the planned procedure including risks benefits and alternatives. He wished to proceed. The patient was brought to the operative room today following informed consent. Preoperative antibiotics were given and a timeout was performed. He was placed supine on the operative table with arms outstretched and arm boards. A general endotracheal anesthesia was induced. Once adequately sedated the abdomen was then prepped and draped in the usual sterile manner. A 8 mm incision was made just above the umbilicus which a 5 mm trocar was placed optically. This was placed without incident. A 5 mm 0 degree scope was inserted. There were no signs of bowel or vascular injury. The abdomen was then fully insufflated with CO2 gas. Next a 5 mm trocar was placed in the right side of the abdomen as well as another 8 mm trocar in the left side of the abdomen. These were placed without incident. The original umbilical trocar was switched out to an 8 mm trocar. This was placed without incident. The abdomen was then fully insufflated with CO2 gas. The patient was then placed in mild Trendelenburg position. The da Lucio robot was then brought onto the operative field. It was docked. The instruments were inserted. The pelvis was visualized. There were no obvious hernias on the left. There was clearly a hernia on the right. The peritoneum overlying the hernia was then incised in a lateral to medial direction. A subperitoneal plane was then developed. Vinny's ligament was dissected out medially. The patient had a pretty sizable and chronic appearing indirect hernia. This was very early carefully reduced and dissected off of the cord structures. Once this was reduced and sufficient dissection was performed, a 10 x 15 cm ProGrip mesh was selected. This was cut to size and then placed in antibiotic solution. The mesh was inserted and laid in position. This covered over the fascial defect nicely. The peritoneum was then closed using a 6 inch V-Loc suture. This closed the peritoneum nicely. Attention was then turned towards the umbilical hernia. A curvilinear incision was extended around the superior aspect of the umbilicus. Bovie electrocautery was then used dissect down through subcutaneous tissues. The skin of the umbilicus was encircled using a curved Suzi clamp. The skin of the umbilicus was detached from the underlying hernia sac. The hernia sac was excised along with some of the fatty contents of the hernia. Hemostasis was excellent. The fascial defect was closed using 0 Nurolon suture x 3. This closed the fascial defect nicely. 3-0 Vicryl was then used to reaffixed the skin in the umbilicus down to the fascia. 3-0 Vicryl was used to reapproximate the subdermal layer. Finally 4-0 Vicryl was run the skin on all incisions. The patient was awakened anesthesia and taken recovery in good condition Surgical Findings: Large right inguinal hernia Small local hernia Complications Complications: No Admit VTE Documentation VTE Present on Admission: No VTE Mechan Device Prophylaxis: SCD's VTE Pharm Prophylaxis ordered?: No Reason prophylaxis not ordered: Treatment Not Indicated
--- NOTE | 2025-01-20 14:19 | PCM.POST.ANE ---
Anesthesia: Postop Eval I Current Vital Signs Temperature: 98.5 F Pulse Rate: 71 Blood Pressure: 116/70 Respiratory Rate: 16 Pulse Ox: 98 Oxygen Delivery Method: Room Air Assessment Airway patent: Yes Spontaneous unlabored respirations: Yes Mental status: Asleep nausea: No Vomiting: No Anesthesia Complication: No Fluid Hydration Crystalloid volume administer (ml): 1,200 Total IV fluid infused: 1,200 Progress Note Anesthesia document: Postop Eval 1 completed: Yes
--- NOTE | 2025-01-20 16:29 | POSTOPAN2_ITS ---
Anesthesia Postop Eval I Sum Postop Eval Completion status Anesthesia document: Postop Eval 1 completed: Yes Anesthesia Postop Eval I Summary Anesthesia Postop Eval I Summary: Anesthesia Postop Eval I: Assessment Summary Airway patent Yes 01/20/25 14:20 SPINNING SUPERVISOR.[email or web address] Spontaneous unlabored Yes 01/20/25 14:20 SPINNING SUPERVISOR.[email or web address] respirations Mental status Asleep 01/20/25 14:20 SPINNING SUPERVISOR.JDEF nausea No 01/20/25 14:20 SPINNING SUPERVISOR.JDEF Vomiting No 01/20/25 14:20 SPINNING SUPERVISOR.[email or web address] Anesthesia Postop Eval I: Fluid Summary Crystalloid volume administer 1,200 01/20/25 14:20 SPINNING SUPERVISOR.JDEF (ml) Colloids volume administered ( ml) Blood Product volume administered (ml) Total IV fluid infused 1,200 01/20/25 14:20 SPINNING SUPERVISOR.JDEF Anesthesia Postop Eval I: Summary Notes Anesthesia Complication No 01/20/25 14:20 SPINNING SUPERVISOR.[email or web address] Anesthesia Complication Comment: Post-operative progress note Anesthesia: Postop Eval II Evaluation Mental status: Awake and Calm Pain Level: 1 nausea: No Vomiting: No
--- NOTE | 2025-01-20 16:29 | PCM.POSTANE2 ---
Anesthesia Postop Eval I Sum Postop Eval Completion status Anesthesia document: Postop Eval 1 completed: Yes Anesthesia Postop Eval I Summary Anesthesia Postop Eval I Summary: Anesthesia Postop Eval I: Assessment Summary Airway patent Yes 01/20/25 14:20 RN CARE [email or web address] Spontaneous unlabored Yes 01/20/25 14:20 RN CARE [email or web address] respirations Mental status Asleep 01/20/25 14:20 RN [email or web address] [email or web address] nausea No 01/20/25 14:20 RN CARE [email or web address] Vomiting No 01/20/25 14:20 RN CARE [email or web address] Anesthesia Postop Eval I: Fluid Summary Crystalloid volume administer 1,200 01/20/25 14:20 RN [email or web address] [email or web address] (ml) Colloids volume administered ( ml) Blood Product volume administered (ml) Total IV fluid infused 1,200 01/20/25 14:20 RN CARE [email or web address] Anesthesia Postop Eval I: Summary Notes Anesthesia Complication No 01/20/25 14:20 RN CARE [email or web address] Anesthesia Complication Comment: Post-operative progress note Anesthesia: Postop Eval II Evaluation Mental status: Awake and Calm Pain Level: 1 nausea: No Vomiting: No
== END 2025-01-20 15:47 | disposition home or self-care (01) ==
LOC: SDC 10:30 → AC 11:04
PROVIDERS: PCP Physician Assistant; Referring Provider Surgery; Visit Provider Surgery
DX: K42.9 Umbilical hernia without obstruction or gangrene (principal); F17.200 Nicotine dependence, unspecified, uncomplicated; K40.90 Unilateral inguinal hernia, without obstruction or gangrene, not specified as recurrent
CPT/HCPCS: 49650; 49591; S2900; 00840; C1781; J2405